=== PATIENT | male | born 1950 | race Caucasian/White ===

== ENCOUNTER 2018-12-29 10:35 | Inpatient (IN) | payer MEDICARE, MEDICAID ==
[~2018-12-29] VITALS: Ht 177.8 cm; Wt 89.8 kg
--- NOTE | 2018-12-29 10:50 | NUR ---
BLOOD DRAWNED AND SENT TO LAB. URINE SPECIMEN COLLECTED.
[2018-12-29 10:56] LABS: APPEARANCE,URINE Slightly Cloudy (CLEAR); BILIRUBIN,URINE SMALL (NEGATIVE); BLOOD, URINE Trace-lysed Ery/uL (NEGATIVE); KETONES,URINE 15 (NEGATIVE); LEUKOCYTE ESTERASE ,URINE Negative (NEGATIVE); NITRITE, URINE Positive (NEGATIVE); PH,URINE 5.5 (5.0-8.0); PROTEIN,URINE 100 mg/dl (NEGATIVE); UGLUCOSE Negative (NEGATIVE)
[2018-12-29 10:57] LABS: COLOR,URINE Dark Yellow (YELLOW)
[2018-12-29 11:00] LABS: BASOPHILS # (AUTO) 0.1 /CMM (0.0-0.2); BASOPHILS % (AUTO) 0.5 % (0.0-2.0); EOSINOPHILS % (AUTO) 0.1 % (0.0-6.0); HEMATOCRIT 41 % (39-51); HEMOGLOBIN 13.8 g/dL (13.5-17.5); LYMPHOCYTES % (AUTO) 3.6 % (20.0-44.0); MEAN CORPUSCULAR HGB CONC 34 g/dl (31.0-36.0); MEAN CORPUSCULAR VOLUME 98 fL (80-96); MONOCYTES # (AUTO) 1.3 /CMM (0.1-1.30); MONOCYTES % (AUTO) 4.9 % (2.0-12.0); NEUTROPHILS # (AUTO) 24.4 /CMM (1.8-8.9); NEUTROPHILS % (AUTO) 90.9 % (43.0-81.0); PLATELET COUNT (AUTO) 378 /CMM (150-450); RED BLOOD CELL COUNT(AUTO) 4.15 MIL/uL (4.5-6.0); WHITE BLOOD COUNT (AUTO) 26.9 K/uL (4.3-11.0)
[2018-12-29 11:02] LABS: CALCIUM, SERUM 8.7 mg/dL (8.5-10.1); CARBON DIOXIDE 25 mmol/L (21-32); CHLORIDE 88 mmol/L (98-107); CREATININE 1.3 mg/dL (0.6-1.3); GLUCOSE 247 mg/dL (74-106); POTASSIUM 3.7 mmol/L (3.5-5.1); SODIUM SERUM 127 mmol/L (136-145); UREA NITROGEN, BLOOD 20 mg/dL (7-18)
[2018-12-29 11:07] LABS: BACTERIA,URINE Few /HPF (None Seen); SQUAMOUS EPITHELIAL CELL,UR Few /HPF (None Seen); WBC,URINE 0-3 /HPF (0-3)
[2018-12-29 11:08] LABS: ACETAMINOPHEN 0 ug/ml (10-30); ALANINE AMINOTRANSFERASE 20 U/L (12-78); ALBUMIN 2.5 g/dL (3.4-5.0); ALCOHOL, BLOOD < 3 mg/dL (0-0); ALKALINE PHOSPHATASE 108 U/L (46-116); ASPARTATE AMINOTRANSFERASE 20 U/L (15-37); BILIRUBIN,DIRECT 0.4 mg/dL (0.0-0.2); TOTAL PROTEIN, SERUM 7.6 g/dL (6.4-8.2)
[2018-12-29] MEDS ORDERED: CEFTRIAXONE 1GM BAG (ER ONLY) 50 ML IV ONE (11:30)
[2018-12-29] MEDS: IV NS 0.9% 1,000 ML BAG IV ONE ×2 (11:30→11:46)
[2018-12-29] MEDS ORDERED: CEFTRIAXONE 1 G VIAL ONE (11:39)
[2018-12-29] MEDS ORDERED: GLIP10TA11 PO (11:41)
[2018-12-29] MEDS ORDERED: BENA10TA9 PO (11:41)
[2018-12-29] MEDS ORDERED: METF-442 PO (11:41)
[2018-12-29] MEDS ORDERED: ASPI-605 PO (11:41)
[2018-12-29] MEDS ORDERED: SIMV40TA5 PO (11:41)
[2018-12-29] MEDS ORDERED: CHLO25TA2 PO (11:41)
--- NOTE | 2018-12-29 11:44 | NUR ---
RL PAGEZakia, MANUFACTURING PLANT TECHNICIAN.
[2018-12-29] MEDS ORDERED: VANCOMYCIN 1 GM in IV D5W 250 ML IV ONE (12:00)
--- NOTE | 2018-12-29 12:23 | NUR ---
CALLED NURSING SUP. FOR ISRAEL BED
--- NOTE | 2018-12-29 12:38 | NUR ---
ISRAEL 112-2
[2018-12-29] MEDS ORDERED: ONDANSETRON HCL/PF 4 MG/2 ML VIAL IVP PRN (13:00)
[2018-12-29] MEDS ORDERED: CLINDAMYCIN IV RTU IN D5W 900 MG/50 ML PIGGYBACK IV SCH (13:00)
[2018-12-29] MEDS ORDERED: ACETAMINOPHEN 325 MG TABLET PO PRN (13:00)
[2018-12-29] MEDS ORDERED: Z GUARD REMEDY 2 OZ OINT TP PRN (13:00)
[2018-12-29] MEDS ORDERED: HYDROCODONE/APAP 5/325MG 1 EACH TABLET PO PRN (13:00)
[2018-12-29] MEDS ORDERED: MAG HYDROX/AL HYDROX/SIMETH 30 ML UDC PO PRN (13:00)
[2018-12-29] MEDS ORDERED: MAGNESIUM HYDROXIDE 30 ML UDC PO PRN (13:00)
[2018-12-29] MEDS ORDERED: IV NS 0.9% 1,000 ML BAG IV ONE (13:00)
[2018-12-29] MEDS ORDERED: ZOLPIDEM TARTRATE 5 MG TABLET PO PRN (13:00)
--- NOTE | 2018-12-29 13:45 | NUR ---
GAS CHECK PAD MAKERINCINERATOR PLANT GENERAL SUPERVISOR NOTES RECEIVED PT FROM ER TO ROOM 112-1 VIA [employer]DEANNA.ALERT/ORIENTED X3 WITH ANXIOUS BEHAVIOR.ON TELE HR IS [address]ON 2L O2 VIA NC CONTINUOUSLY,NO SOB AND ACUTE DISTRESS NOTED.RIGHT AC IV LINE G 20 IS PRESENT,SITE IS CLEAN,DRY AND INTACT.NO INFILTRATION NOTED.SAFETY IS MAINTAINED AT ALL TIMES.BED IS IN LOW POSITION AND LOCKED,CALL LIGHT IS WITHIN REACH.WILL CONTINUE TO MONITOR THE PT CLOSELY.
[2018-12-29] MEDS ORDERED: CLINDAMYCIN 900 MG in IV NS 0.9% 50 ML IV SCH (14:00)
[2018-12-29] MEDS: CLINDAMYCIN 900 MG in IV D5W 50 ML IV SCH ×2 (14:46→20:00)
--- NOTE | 2018-12-29 15:00 | NUR ---
QUALITY INTERN NOTES OFFERED TO CHECK SKIN ASSESSMENT,PT REFUSED AND HE TUNG HE WANTS TO SLEEP.EXPLAINED THE RISK AND BENEFITS X3,STILL REFUSED.
--- NOTE | 2018-12-29 15:30 | NUR ---
DIE MAKER NOTES OFFERED AGAIN THE SKIN ASSESSMENT,PT SAID"I AM OK TO CHECK SKIN IN LOWER EXTREMITY,NO MORE.PLEASE DONT DISTURB ME,I WANT TO SLEEP".SKIN ASSESSMENT DONE IN LOWER EXTREMITY.
[2018-12-29 16:00] VITALS: BP 101/61
[2018-12-29] MEDS: METFORMIN 500 MG TABLET PO SCH (17:20)
[2018-12-29] MEDS: BENAZEPRIL HCL 10 MG TABLET PO SCH (17:20)
--- NOTE | 2018-12-29 18:28 | NUR ---
HYDROGEN BRAZE FURNACE OPERATOR CLOSING NOTES PT IS LYING ON BED.ALERT/ORIENTED X3.ON 2L O2 VIA NC CONTINUOUSLY,NO SOB AND ACUTE DISTRESS NOTED.SLEEPING ON BED.OFFERED AGAIN THE SKIN ASSESSMENT,STILL REFUSED.IV LINE IS IN PLACE.RESPIRATION IS EVEN AND NONLABORED.NO SIGNIFICANT CHANGES NOTED IN THE SHIFT.ENDORSED TO TEST EVALUATOR RN FOR ADRIAN AND TRY TO OFFER THE SKIN ASSESSMENT LATER.
--- NOTE | 2018-12-29 19:43 | NUR ---
TD RN NOTES RECEIVED PT ON BED. A/O X 3. ON NASAL CANNULA NO RESPIRATORY DISTRESS NOTED. ON TELE MONITOR SR 100. IV ACCESS RAC G20 PATENT AND INTACT. BED ALARM ON. SIDE RAILS UP X3. CALL LIGHT WITHIN REACH. BED IN LOW POSITION. WILL CONTINUE TO MONITOR PT CLOSELY.
[2018-12-29 20:00] VITALS: BP 123/67
[2018-12-29 20:10] VITALS: BP 123/67
--- NOTE | 2018-12-29 20:42 | NUR ---
TD RN NOTES PT REFUSING BED ALARM, PT EDUCATED ABOUT FALL RISK. PT STILL REFUSED BED ALARM. SIDE RAILS UP X3. BED IN LOCKED AND LOWEST POSITION. WILL MONITOR PT CLOSELY.
--- NOTE | 2018-12-29 21:23 | NUR ---
TD RN NOTES PT REFUSED PM MEDS WHEN RN OPENED THE MEDICATION. EXPLAIN BENEFITS. PT STILL REFUSED. WILL MONITOR PT CLOSELY.
[2018-12-29] MEDS ORDERED: SIMVASTATIN 40 MG TABLET PO SCH (22:00)
[2018-12-30] VITALS: BP 114/62
--- NOTE | 2018-12-30 00:35 | NUR ---
TD RN NOTES PT KEEPS REMOVING WOUND CARE DRESSING. PT REFUSED WOUND CARE AT THIS TIME. EXPLAINED RISK AND BENEFITS, PT STILL REFUSED.
[2018-12-30 05:30] VITALS: BP 134/69
[2018-12-30] MEDS: CLINDAMYCIN 900 MG in IV D5W 50 ML IV SCH ×2 (05:48→13:00)
[2018-12-30 06:48] LABS: BASOPHILS # (AUTO) 0.1 /CMM (0.0-0.2); BASOPHILS % (AUTO) 0.4 % (0.0-2.0); EOSINOPHILS % (AUTO) 0.1 % (0.0-6.0); HEMATOCRIT 37 % (39-51); HEMOGLOBIN 12.3 g/dL (13.5-17.5); LYMPHOCYTES # (AUTO) 1.3 /CMM (0.8-4.8); LYMPHOCYTES % (AUTO) 5.8 % (20.0-44.0); MEAN CORPUSCULAR HGB CONC 34 g/dl (31.0-36.0); MEAN CORPUSCULAR VOLUME 97 fL (80-96); MONOCYTES # (AUTO) 2.1 /CMM (0.1-1.30); MONOCYTES % (AUTO) 9.3 % (2.0-12.0); NEUTROPHILS # (AUTO) 19.6 /CMM (1.8-8.9); NEUTROPHILS % (AUTO) 84.4 % (43.0-81.0); PLATELET COUNT (AUTO) 349 /CMM (150-450); RED BLOOD CELL COUNT(AUTO) 3.78 MIL/uL (4.5-6.0); WHITE BLOOD COUNT (AUTO) 23.2 K/uL (4.3-11.0)
--- NOTE | 2018-12-30 06:53 | NUR ---
TD RN NOTES NO ACUTE CHANGES NOTED DURING THE SHIFT. PROVIDED COMFORT AND SAFETY. NO RESPIRATORY DISTRESS NOTED. WILL ENDORSE TO THE AM NURSE FOR CONTINUITY OF CARE.
[2018-12-30 07:05] LABS: CALCIUM, SERUM 8.6 mg/dL (8.5-10.1); CREATININE 0.7 mg/dL (0.6-1.3); MAGNESIUM 1.5 mg/dL (1.8-2.4); PHOSPHORUS 2.6 mg/dL (2.5-4.9); POTASSIUM 3.2 mmol/L (3.5-5.1)
[2018-12-30 08:00] VITALS: BP 106/57
--- NOTE | 2018-12-30 08:14 | NUR ---
WOUND CARE CONSULT: PT PRESENTS WITH SWELLING AND REDNESS TO LEFT LOWER LEG AND FOOT WELL FOUL PURULENT PLANTAR ULCER AND DISCOLORED TOES WITH SWELLING, PRESENT ON ADMISSION. RECOMMEND DPM CONSULT. DR MONTAÑO NOTIFIED OF CONSULT REQUEST. WILL SEE PRN. FUNK IN AGREEMENT WITH PLAN OF CARE. PT ON BERE ISOFLEX LOW AIRLOSS BED. PT INDEPENDENT WITH BED MOBILITY AND CONTINENT AT THIS TIME. Addendum: 12/30/18 at 0816 by TU JULIAN WNDNU Amended: Links added.
[2018-12-30 09:00] VITALS: BP 106/57
[2018-12-30] MEDS ORDERED: glipiZIDE 10 MG TABLET PO SCH (09:00)
[2018-12-30] MEDS ORDERED: ASPIRIN EC 81 MG TABLET.DR PO SCH (09:00)
[2018-12-30] MEDS: BENAZEPRIL HCL 10 MG TABLET PO SCH (09:00)
[2018-12-30] MEDS ORDERED: Chlorthalidone 25 MG PO SCH (09:00)
[2018-12-30] MEDS: METFORMIN 500 MG TABLET PO SCH (09:15)
[2018-12-30] MEDS: Magnesium 1GM/D5W 100ML PREMIX 100 ML IV SCH ×2 (10:00→11:00)
--- NOTE | 2018-12-30 10:22 | NUR ---
Social service consult requested by ISRAEL TRACIE Olivia for possible homelessness. Pt. is a 68 year old male who was admitted to [facility] for sepsis. SEGUNDO was informed by TRACIE Olivia that pt. wanted to leave the hospital. SEGUNDO and TRACIE Olivia met with pt. bedside. Pt. was cooperative with SW during the assessment. Pt. states he resides at [facility] located at [address] [place] [address], [address] in [facility]. Pt. states he receives 60 hrs per month of IHSS. Pt. has a caregiver three times per week. Pt. is declining SNF placement. Pt. receives SSI monthly but did not want to disclose how much he was getting. Pt. is wanting to leave right away stating, " I have to take care of some important personal business." Pt. would not disclose what it is. SW convinced pt. to stay until the doctor comes by to see him rather than leaving AMA. Pt. agreed.
[2018-12-30] MEDS: POTASSIUM CHLORIDE 20 MEQ TAB.PRT.SR PO SCH ×2 (10:30→11:30)
--- NOTE | 2018-12-30 11:43 | NUR ---
RN NOTE PT INSISTED ON LEAVING THE HOSPITAL AMA DUE TO URGENT MATTER HE NEEDS TO TAKE CARE OF, HE SAID HE WILL COME BACK TOMORROW AFTERNOON, REFUSED FULL SKIN ASSESSMENT, REFUSED IV MEDS PRIOR TO GOING HOME, DR LORA NOTIFIED AND HE SAID OKAY TO LET HIM SIGN AMA PAPER AND GO. PT AOX3, RISKS OF LEAVING AMA EXPLAINED, BUT STILL REFUSED TO STAY. PT ENCOURAGED TO COME BACK TO HOSPITAL DUE TO HIS ULCER AND CELLULITIS. PT VERBALIZED UNDERSTANDING. PT SIGNED AMA PAPER. PT WILL CALL CAB/CAREGIVER FOR HIMSELF. BELONGINGS LIST SIGNED AND BELONGINGS PROVIDED TO PT. Addendum: 12/30/18 at 1407 by TOMA RAMIREZ RN iv site removed, id band removed.
[2018-12-30] MEDS ORDERED: PIPERACILLIN /TAZOBACTAM 3.375 G in IV D5W 50 ML IV ONE (12:00)
--- NOTE | 2018-12-30 12:11 | NUR ---
SEGUNDO received a call from TRACIE Olivia stating that pt. is wanting to leave AMA but pt. is not able to walk. SEGUNDO contacted stock broker supervisor Mary Beth Andrade and consulted with her regarding pt's condition. SEGUNDO call Coleman in intake to request crisis evaluation for the pt.
--- NOTE | 2018-12-30 12:26 | NUR ---
DR. LORA NOTIFIED REGARDING PATIENT AMBULATION STATUS AND PT. SIGNED AMA,PT. IS ALERT NO SUICIDAL IDEATION,BUT UNABLE TO WALK R/T SWOLLEN LEG.EXPLAINED THE LIVING SITUATION ALSO OF PT. PER MD HE WILL SEE PT. AROUND NOON,MADE AWARE ALSO THAT OR RN RECOMMEND CRISIS TEAM TO SEE PT.
--- NOTE | 2018-12-30 12:29 | NUR ---
PATIENT AGITATED AND DEMANDED TO SMOKE,PT. SIGNED WAIVER FORM FOR SMOKING AND ACCOMPANIED TO SMOKING AREA AND AGREED TO WAIT FOR DR. LORA.
--- NOTE | 2018-12-30 12:31 | NUR ---
EXPLAINED THE RISK OF LEAVING AMA W/ UNSTEADY GAIT THAT HE WILL INJUR HIMSELF SECONDARY TO FALL AND MIGHT HIT HIS HEAD AND CAUSE ,ALSO EXPLAINED THE RISK OF INFECTION FOR LEAVING WITH HIS FOOT UNTREATED FOR INFECTION.PATIENT VERBALIZED HE STILL WANTS TO LEAVE AND WHEN ASKED IF HE CAN CALL SOMEBODY TO PICK HIM UP PT. GET UPSET.PT. .AGREED TO WAIT FOR DR. LORA.GIORGI FENTONW UPDATED WITH PT. SITUATION.
--- NOTE | 2018-12-30 13:05 | NUR ---
SEGUNDO met with pt. who appears to have full mental capacity in making decisions for himself. Pt. is is not suicidal or homicidal. Pt. continues to state he needs to take care of a personal matter and will come back to the ED tomorrow. Pt. is adamant about leaving the hospital against medical advice. Pt's doctor is aware. SEGUNDO contacted wood gang sawyer Suleman Borden and informed him that pt. does not need a crisis evaluation at this time since pt. has full mental capacity in making decisions and is choosing to leave AMA. Pt. stated he has someone to receive and assist him at home.
--- NOTE | 2018-12-30 13:14 | NUR ---
DR. LORA AT BEDSIDE TALKING TO PATIENT AND EXPLAINING RISKS OF LEAVING AMA INCLUDING ,PT. STILL INSISTED TO LEAVE AMA AND VERBALIZED HE WILL CALL CAB AND SOMEBODY WILL HELP HIM IN LONG-TERM WHERE HE LIVES,PER MD OK TO,LEAVE AMA AND PATIENT DOES NOT NEED CRISIS TEAM EVAL.PATIENT DISCHARGE AMA VIA TAXI CAB.ARTS AND CRAFTS TEACHER GIORGI UPDATED.
--- NOTE | 2018-12-30 13:15 | NUR ---
rn note pt had lunch spoke with md, pt left ama. helped to taxi cab.
[2018-12-30] MEDS ORDERED: PIPERACILLIN /TAZOBACTAM 3.375 G in IV D5W 100 ML IV SCH (18:00)
[2018-12-31] MEDS ORDERED: DAKINS QUARTER STRENGTH (0.125%) 480 ML BOTTLE TOP SCH (09:00)
[2018-12-31] MEDS ORDERED: CADEXOMER IODINE 40 GM TUBE TP SCH (09:00)
== END 2018-12-30 14:05 | disposition left against medical advice (07) | DRG 871 ==
LOC: ER 10:35 → TELE-TD 12:41 → MEDSG1 12-30 10:26
PROVIDERS: ADMIT Family Medicine; ATTEND Internal Medicine
DX: A41.9 Sepsis, unspecified organism (principal); N17.0 Acute kidney failure with tubular necrosis; L03.116 Cellulitis of left lower limb; E44.0 Moderate protein-calorie malnutrition; E87.1 Hypo-osmolality and hyponatremia; E87.2 Acidosis; L02.612 Cutaneous abscess of left foot; M86.8X7 Other osteomyelitis, ankle and foot; E11.65 Type 2 diabetes mellitus with hyperglycemia; E78.5 Hyperlipidemia, unspecified; L97.529 Non-pressure chronic ulcer of other part of left foot with unspecified severity; E11.621 Type 2 diabetes mellitus with foot ulcer; E86.1 Hypovolemia; I10 Essential (primary) hypertension; F17.210 Nicotine dependence, cigarettes, uncomplicated; E11.42 Type 2 diabetes mellitus with diabetic polyneuropathy; Z79.82 Long term (current) use of aspirin; Z79.84 Long term (current) use of oral hypoglycemic drugs; E11.69 Type 2 diabetes mellitus with other specified complication; Z68.28 Body mass index [BMI] 28.0-28.9, adult
CPT/HCPCS: 36415; 71045-TC; 80048-TC; 80061-TC; 80076-TC; 80305; 81000-TC; 83605-TC; 83735-TC; 84100-TC; 85025-TC; 87040-TC; 87081-TC; 87086-TC; A4216; A6253; A6403; G0378; G0480; J0696; J2543; J3475; J3490; J7030; J7040; J7050; J7060

== ENCOUNTER 2018-12-31 09:01 | Inpatient (IN) | payer MEDICARE, MEDICAID ==
[~2018-12-31] VITALS: Ht 177.8 cm; Wt 92.1 kg
[~2018-12-31 09:01] MED LIST: ASPI-605 PO; BENA10TA11 PO; CHLO25TA2 PO; GLIP10TA11 PO; METF-442 PO; SIMV40TA5 PO
--- NOTE | 2018-12-31 09:38 | NUR ---
PT BROUGHT BY BIB RA 878 FOR EVAL/TX OF LEFT FOOT CELLULITIS,ADMITTED 2 DAYS AGO FOR SAME
[2018-12-31 09:52] LABS: BASOPHILS % (AUTO) 0.2 % (0.0-2.0); EOSINOPHILS % (AUTO) 0.2 % (0.0-6.0); HEMATOCRIT 41 % (39-51); HEMOGLOBIN 13.9 g/dL (13.5-17.5); LYMPHOCYTES # (AUTO) 1.2 /CMM (0.8-4.8); LYMPHOCYTES % (AUTO) 6.1 % (20.0-44.0); MEAN CORPUSCULAR HGB CONC 34 g/dl (31.0-36.0); MEAN CORPUSCULAR VOLUME 97 fL (80-96); MONOCYTES # (AUTO) 1.4 /CMM (0.1-1.30); MONOCYTES % (AUTO) 6.8 % (2.0-12.0); NEUTROPHILS # (AUTO) 17.4 /CMM (1.8-8.9); NEUTROPHILS % (AUTO) 86.7 % (43.0-81.0); PLATELET COUNT (AUTO) 395 /CMM (150-450); RED BLOOD CELL COUNT(AUTO) 4.17 MIL/uL (4.5-6.0)
[2018-12-31] MEDS ORDERED: VANCOMYCIN 1 GM in IV D5W 250 ML IV ONE (10:00)
[2018-12-31] MEDS ORDERED: PIPERACILLIN /TAZOBACTAM 3.375 G in IV D5W 50 ML IV ONE (10:00)
[2018-12-31 10:02] LABS: CALCIUM, SERUM 8.9 mg/dL (8.5-10.1); CREATININE 0.8 mg/dL (0.6-1.3); POTASSIUM 3.5 mmol/L (3.5-5.1)
[2018-12-31 10:08] LABS: ALBUMIN 2.2 g/dL (3.4-5.0); BILIRUBIN,DIRECT 0.3 mg/dL (0.0-0.2); BILIRUBIN,TOTAL 0.9 mg/dL (0.2-1.0); TOTAL PROTEIN, SERUM 7.3 g/dL (6.4-8.2)
--- NOTE | 2018-12-31 10:58 | NUR ---
RN REPORT GIVEN TO CLARKE SARAVIA ADMITTED TO ROOM 204-1 UNDER NEFTALY.
--- NOTE | 2018-12-31 11:03 | NUR ---
PANEL ON-CALL PAGED
--- NOTE | 2018-12-31 11:04 | NUR ---
DR SAMUELS/ON-CALL PAGED
--- NOTE | 2018-12-31 11:30 | NUR ---
RECEIVED PATIENT FROM ER IN STABLE CONDITION. A/OX3, ABLE TO MAKE NEEDS KNOWN. WALKED FROM GURNEY(OUTSIDE THE ROOM) TO BED VIA WALKER WITH ASSISTANCE. NOT IN ANY FORM OF DISTRESS, NO SOB. PATIENT HAS DIABETIC WOUND ON LLE. PAIN IS TOLERABLE PER PATIENT, OFFERED PAIN MEDS AND WILL ADMINISTER PAIN MEDS ORDERED. SKIN ASSESSMENT DONE, PHOTOS TAKEN. ALL BELONGINGS CHECK AND NOTED ON CHECKLIST. PATIENT HAS LOWER DENTURES ONLY. IV ACCESS ON LEFT AC, INTACT AND PATENT. KEPT PATIENT SAFE AND COMFORTABLE. BED IN LOW/LOCKED POSIITON, SIDERAILS UPX2, CALL LIGHT IN REACH. WILL CONTINUE TO MONIOTR ACCORDINGLY.
[2018-12-31 12:00] VITALS: BP 111/71
--- NOTE | 2018-12-31 12:15 | NUR ---
RN NOTES DR RITTER ON BEDSIDE TALKING TO PATIENT. MD WILL DO I&D OF LEFT WOUND TODAY.
[2018-12-31] MEDS ORDERED: ACETAMINOPHEN 325 MG TABLET PO PRN (12:30)
[2018-12-31] MEDS: SIMVASTATIN 40 MG TABLET PO SCH ×2 (12:30→21:24)
[2018-12-31] MEDS ORDERED: HYDROCODONE/APAP 5/325MG 1 EACH TABLET PO PRN (12:30)
[2018-12-31] MEDS ORDERED: ONDANSETRON HCL/PF 4 MG/2 ML VIAL IVP PRN (12:30)
[2018-12-31] MEDS ORDERED: Z GUARD REMEDY 2 OZ OINT TP PRN (12:30)
[2018-12-31] MEDS: BENAZEPRIL HCL 10 MG TABLET PO SCH ×2 (12:30→17:00)
[2018-12-31] MEDS ORDERED: MAGNESIUM HYDROXIDE 30 ML UDC PO PRN (12:30)
[2018-12-31] MEDS ORDERED: MAG HYDROX/AL HYDROX/SIMETH 30 ML UDC PO PRN (12:30)
--- NOTE | 2018-12-31 12:30 | NUR ---
RN NOTES PICKED UP BY OR NURSES FOR I%D. CONSENT WAS SIGNED BY PATIENT AND CHECKLIST DONE.
[2018-12-31] MEDS ORDERED: FEE PK DOSING 1 MIN EA MC ONE ×3 (12:35→12:49)
[2018-12-31] MEDS ORDERED: LIDOCAINE HCL/PF 1% 30 ML SDV ONE (12:43)
[2018-12-31] MEDS ORDERED: FAMOTIDINE/PF INJ 20 MG/2 ML VIAL IV ONE (12:52)
[2018-12-31] MEDS ORDERED: BACITRACIN 50000 UNITS/VIAL ONE (12:56)
--- NOTE | 2018-12-31 13:59 | NUR ---
CAME BACK FROM OR. PATIENT IN STABLE CONDITION. RESUME PRE-OP ORDERED PER MD.
[2018-12-31] MEDS: ASPIRIN EC 81 MG TABLET.DR PO SCH (14:11)
[2018-12-31] MEDS: glipiZIDE 10 MG TABLET PO SCH (14:12)
[2018-12-31] MEDS: IV NS 0.9% 1,000 ML IV PRN (14:22)
--- NOTE | 2018-12-31 14:47 | NUR ---
RN NOTES ZOCOR NON-ADMIN. PATIENT TAKES IT AT NIGHT. NOTIFIED PHARMACYALAN.
--- NOTE | 2018-12-31 15:55 | NUR ---
PATIENT REFUSED MRI AT THE MOMENT, PATIENT YELLED "DAMN, CAN I SLEEP FIRST!". AGREED TO DO IT LATER.
[2018-12-31 16:00] VITALS: BP_SYST 104; BP_SYST 120; BP_DIAS 61; BP_DIAS 73
[2018-12-31] MEDS: METFORMIN 500 MG TABLET PO SCH (17:45)
[2018-12-31] MEDS: PIPERACILLIN /TAZOBACTAM 4.5 G in IV D5W 50 ML IV SCH ×2 (17:46→23:25)
[2018-12-31] MEDS: GLUCERNA SHAKE 237 ML CAN PO SCH (18:08)
--- NOTE | 2018-12-31 19:09 | NUR ---
RN CLOSING NOTES PATIENT IN STABLE CONDITION. ALL NEEDS ATTENDED AND PROVIDED. ALL DUE MEDICATIONS ADMINISTERED, ORDERED. KEPT SAFE AND COMFORTABLE. BED IN LOW/LOCKED POSITION, SIDERAILS UPX2, CALL LIGHT IN REACH. ENDORSED TO NIGHT RN FOR ADRIAN.
--- NOTE | 2018-12-31 19:30 | NUR ---
RECEIVED PATIENT IN BED AWAKE. AO X 3, ABLE TO MAKE NEEDS KNOWN. NO ACUTE DISTRESS NOTED. DENIES ANY PAIN AT THIS TIME. IV SITE PATENT, INTACT; IVF INFUSING ORDERED. LEFT FOOT DRESSING INTACT. SAFETY REMINDERS GIVEN. ON LOW BED WITH BILATERAL UPPER SIDE RAILS UP. CALL ZURITA WITHIN EASY REACH. WILL CONTINUE TO MONITOR.
[2018-12-31 20:00] VITALS: BP 98/50
[2018-12-31] MEDS: VANCOMYCIN 1 GM in IV D5W 250 ML IV SCH (21:24)
[2018-12-31] MEDS: ZOLPIDEM TARTRATE 5 MG TABLET PO PRN (21:36)
--- NOTE | 2019-01-01 02:00 | NUR ---
PATIENT REFUSED TO HAVE IVF CONTINUING TO INFUSE. EDUCATION GIVEN. PATIENT STILL STRONGLY REFUSED TO HAVE IVF INFUSE; STATING HE WANTS TO SLEEP. NURSE OFFERED TO CHANGED IV SITE. PATIENT REFUSED. IVF TAKEN OFF FOR NOW.
[2019-01-01] MEDS: PIPERACILLIN /TAZOBACTAM 4.5 G in IV D5W 50 ML IV SCH ×4 (05:51→23:42)
--- NOTE | 2019-01-01 06:00 | NUR ---
PATIENT ASLEEP, EASILY AROUSABLE. RESPIRATIONS EVEN. NO SIGNS OF PAIN NOTED. DUE MEDS GIVEN WITH NO ASE NOTED. NEEDS ATTENDED. SAFETY PRECAUTIONS AND COMFORT MEASURES IN PLACE. WILL GIVE REPORT TO DAY SHIFT FOR CONTINUITY OF CARE.
--- NOTE | 2019-01-01 07:15 | NUR ---
RN OPENING NOTES RECEIVED PATIENT IN BED AWAKE. A/O X 3, ABLE TO MAKE NEEDS KNOWN. NO ACUTE DISTRESS NOTED. DENIES ANY PAIN AT THIS TIME. IV ACCESS PATENT, INTACT; LEFT FOOT DRESSING C/D/I. SAFETY REMINDERS GIVEN. ON LOCKED/LOW BED WITH BILATERAL UPPER SIDE RAILS UP. CALL ZURITA WITHIN EASY REACH. WILL CONTINUE TO MONITOR.
[2019-01-01 07:20] LABS: BASOPHILS # (AUTO) 0.1 /CMM (0.0-0.2); BASOPHILS % (AUTO) 0.6 % (0.0-2.0); EOSINOPHILS % (AUTO) 0.4 % (0.0-6.0); HEMATOCRIT 38 % (39-51); HEMOGLOBIN 12.8 g/dL (13.5-17.5); LYMPHOCYTES # (AUTO) 1.5 /CMM (0.8-4.8); MEAN CORPUSCULAR HGB CONC 34 g/dl (31.0-36.0); MEAN CORPUSCULAR VOLUME 97 fL (80-96); MONOCYTES # (AUTO) 1.7 /CMM (0.1-1.30); MONOCYTES % (AUTO) 11.4 % (2.0-12.0); NEUTROPHILS # (AUTO) 11.7 /CMM (1.8-8.9); NEUTROPHILS % (AUTO) 77.6 % (43.0-81.0); PLATELET COUNT (AUTO) 377 /CMM (150-450); WHITE BLOOD COUNT (AUTO) 15.1 K/uL (4.3-11.0)
[2019-01-01 07:57] LABS: ALBUMIN 1.9 g/dL (3.4-5.0); BILIRUBIN,TOTAL 0.5 mg/dL (0.2-1.0); CALCIUM, SERUM 8.7 mg/dL (8.5-10.1); CREATININE 0.7 mg/dL (0.6-1.3); MAGNESIUM 1.4 mg/dL (1.8-2.4); PHOSPHORUS 3.7 mg/dL (2.5-4.9); POTASSIUM 3.2 mmol/L (3.5-5.1); TOTAL PROTEIN, SERUM 6.5 g/dL (6.4-8.2)
[2019-01-01 08:00] VITALS: BP 124/69
--- NOTE | 2019-01-01 08:04 | NUR ---
WOUND CARE CONSULT WOUND CARE RECEIVED CONSULT FOR L FOOT WOUND. WOUND CARE WILL DEFER CONSULT AND TREATMENT PLANS TO DPM DR MONTAÑO WHO IS CURRENTLY FOLLOWING THIS PATIENT. PATIENT WITH ESTEBAN AT 19, WILL SEE PRN.
[2019-01-01] MEDS: METFORMIN 500 MG TABLET PO SCH ×2 (08:17→17:00)
[2019-01-01] MEDS: ASPIRIN EC 81 MG TABLET.DR PO SCH (08:17)
[2019-01-01] MEDS: SPIRONOLACTONE 25 MG TABLET PO SCH (08:18)
[2019-01-01] MEDS: ZINC SULFATE 220 MG CAPSULE PO SCH (08:18)
[2019-01-01] MEDS: ASCORBIC ACID 500 MG TABLET PO SCH (08:18)
[2019-01-01] MEDS: BENAZEPRIL HCL 10 MG TABLET PO SCH ×2 (08:19→17:00)
[2019-01-01] MEDS: GLUCERNA SHAKE 237 ML CAN PO SCH ×3 (08:21→17:00)
[2019-01-01] MEDS: glipiZIDE 10 MG TABLET PO SCH (08:22)
[2019-01-01] MEDS: POTASSIUM CHLORIDE 20 MEQ TAB.PRT.SR PO SCH ×2 (10:10→12:18)
[2019-01-01] MEDS: VANCOMYCIN 1 GM in IV D5W 250 ML IV SCH ×2 (10:10→21:38)
[2019-01-01] MEDS: MULTIPLE VIT (LYCOPENE/FA/MV,CA,IRON,MIN/LUT)1 TAB PO SCH (10:26)
[2019-01-01] MEDS: Magnesium 1GM/D5W 100ML PREMIX 100 ML IV SCH ×4 (11:45→16:31)
[2019-01-01] MEDS: IV NS 0.9% 1,000 ML IV PRN (15:07)
--- NOTE | 2019-01-01 15:31 | NUR ---
called dr guzman's office to f/u consult. spoke with supervisor fabrication, she will page dr guzman.
--- NOTE | 2019-01-01 15:55 | NUR ---
RN NOTES: ISS PATIENT HAS NO ACCU CHECK/SLIDING SCALE ORDERED. VERIFIED WITH DR BOWEN REGARDING SLIDING SCALE. PER MD, PLACE PATIENT ON AGGRESSIVE SLIDING SCALE. ORDERS VERIFIED READ BACK, NOTED AND WILL CARRY OUT.
[2019-01-01 16:00] VITALS: BP 90/55
[2019-01-01] MEDS ORDERED: DEXTROSE 50%-WATER 50 ML DISP.SYRIN IV PRN (16:00)
--- NOTE | 2019-01-01 17:00 | NUR ---
WOUND CARE RENDERED ORDERED.
[2019-01-01] MEDS: LACTOBACILLUS RHAMNOSUS GG 1 EACH CAP.SPRINK PO SCH (17:20)
--- NOTE | 2019-01-01 17:30 | NUR ---
DR LR AT BEDSIDE TALKING TO PATIENT.
--- NOTE | 2019-01-01 17:45 | NUR ---
RN NOTES: ACCU BS= 36, THIRD TIME TAKEN. PAGED DR BOWEN, AWAITING CALL BACK FROM . ORDERED STAT POC FROM LAB PROTOCOL. Addendum: 01/01/19 at 1813 by CLARKE HANNA PATIENT WAS ASYMPTOMATIC..
[2019-01-01] MEDS: BLOOD SUGAR DIAGNOSTIC 1 EACH STRIP IN SCH ×2 (17:47→21:36)
--- NOTE | 2019-01-01 17:48 | NUR ---
RN NOTES OFFERED D50 BUT PATIENT REFUSED AND STATED HE WANT TO EAT AND DRINK ORANGE JUICE INSTEAD. EXPLAIN THE RISK AND BENEFIT. PATIENT IS ALERT AND ORIENTEDX4. ASYMPTOMATIC.
--- NOTE | 2019-01-01 17:50 | NUR ---
RN NOTES PATIENT IS EATING DINNER. GAVE 200ML ORANGE JUICE.
--- NOTE | 2019-01-01 18:35 | NUR ---
RECHECKED POC GLUCOSE =82. PATIENT STABLE CONDITION. WILL MONIOTR ACCORDINGLY
--- NOTE | 2019-01-01 19:30 | NUR ---
RECEIVED PATIENT IN BED AWAKE. AO X 3, ABLE TO MAKE NEEDS KNOWN. NO ACUTE DISTRESS NOTED. DENIES ANY PAIN AT THIS TIME. IV SITE PATENT, INTACT; FLUSHED. LEFT FOOT DRESSING INTACT. SAFETY REMINDERS GIVEN. ON LOW BED WITH BILATERAL UPPER SIDE RAILS UP. CALL ZURITA WITHIN EASY REACH. WILL CONTINUE TO MONITOR.
--- NOTE | 2019-01-01 19:32 | NUR ---
RN CLOSING NOTES PATIENT IN STABLE CONDITION. ALL NEEDS ATTENDED AND PROVIDED. ALL DUE MEDICATIONS ADMINISTERED ORDERED. KEPT SAFE AND COMFORTABLE. BED IN LOW/LOCKED POSITION, SIDERAILS UPX2, CALL LIGHT IN REACH. ENDORSED TO NIGHT RN FOR ADRIAN.
[2019-01-01 20:00] VITALS: BP 107/59
[2019-01-01] MEDS: SIMVASTATIN 40 MG TABLET PO SCH (21:37)
[2019-01-01] MEDS: ZOLPIDEM TARTRATE 5 MG TABLET PO PRN (21:38)
--- NOTE | 2019-01-01 23:00 | NUR ---
HS BS 45. PATIENT AO X 3, ABLE TO MAKE NEEDS KNOWN. SNACK OF SARAVANAN CRACKERS, JUICE, AND MILK GIVEN. STAT RANDOM BLOOD GLUCOSE 47. DEXTROSE IVP ADMINISTERED PER PROTOCOL. BLOOD SUGAR RECHECKED ONE HOUR AFTER ADMINISTRATION OF DEXTROSE IVP: 121. LAURYN MANAGER FINE NOTIFIED WITH NO NEW ORDERS.
--- NOTE | 2019-01-02 06:00 | NUR ---
PATIENT ASLEEP, EASILY AROUSABLE. RESPIRATIONS EVEN. NO SIGNS OF PAIN NOTED. NO SYMPTOMS OF HYPER/HYPOGLYCEMIA. DUE MEDS GIVEN WITH NO ASE NOTED. IVF INFUSING ORDERED. PATIENT REFUSED TO HAVE IVF INFUSE FOR PART OF THE SHIFT. EDUCATION GIVEN. PATIENT'S RIGHTS RESPECTED. NEEDS ATTENDED. SAFETY PRECAUTIONS AND COMFORT MEASURES IN PLACE. WILL GIVE REPORT TO DAY SHIFT FOR CONTINUITY OF CARE.
[2019-01-02] MEDS: PIPERACILLIN /TAZOBACTAM 4.5 G in IV D5W 50 ML IV SCH ×4 (06:19→23:41)
[2019-01-02] MEDS: BLOOD SUGAR DIAGNOSTIC 1 EACH STRIP IN SCH ×4 (06:39→21:19)
[2019-01-02 07:18] LABS: CALCIUM, SERUM 8.6 mg/dL (8.5-10.1); CREATININE 0.7 mg/dL (0.6-1.3); POTASSIUM 3.3 mmol/L (3.5-5.1)
--- NOTE | 2019-01-02 07:20 | NUR ---
MS/RN OPENING NOTE THE PATIENT ALERT AND ORIENTED X3. IN ROOM AIR AND DENIES SOB. RESPIRATION REGULAR AND UNLABORED. DENIES PAIN. THE PATIENT IS IN NO APPARENT DISTRESS. RFA G 22 PATENT IV FLUID INFUSING PER ORDER. NO S/S INFILTRATION NOTED. BED LOW AND LOCKED. SIDE RAILS UP X3. CALL LIGHT WITHIN REACH. WILL CONTINUE TO MONITOR.
[2019-01-02] MEDS: GLUCERNA SHAKE 237 ML CAN PO SCH ×3 (07:59→17:00)
[2019-01-02 08:00] VITALS: BP_SYST 116; BP_SYST 117; BP_DIAS 64; BP_DIAS 67
[2019-01-02] MEDS: ASPIRIN EC 81 MG TABLET.DR PO SCH (08:00)
[2019-01-02] MEDS: METFORMIN 500 MG TABLET PO SCH ×2 (08:00→17:45)
[2019-01-02] MEDS: glipiZIDE 10 MG TABLET PO SCH (08:00)
[2019-01-02] MEDS: LACTOBACILLUS RHAMNOSUS GG 1 EACH CAP.SPRINK PO SCH ×2 (08:00→17:45)
[2019-01-02] MEDS: ASCORBIC ACID 500 MG TABLET PO SCH (08:00)
[2019-01-02] MEDS: ZINC SULFATE 220 MG CAPSULE PO SCH (08:00)
[2019-01-02] MEDS: MULTIPLE VIT (LYCOPENE/FA/MV,CA,IRON,MIN/LUT)1 TAB PO SCH (08:00)
[2019-01-02] MEDS: BENAZEPRIL HCL 10 MG TABLET PO SCH ×2 (08:01→17:00)
[2019-01-02] MEDS: SPIRONOLACTONE 25 MG TABLET PO SCH (08:01)
[2019-01-02] MEDS ORDERED: POTASSIUM CHLORIDE 20 MEQ TAB.PRT.SR PO SCH (10:30)
[2019-01-02] MEDS: VANCOMYCIN 1.25 GM in IV D5W 500 ML IV SCH (13:21)
--- NOTE | 2019-01-02 13:30 | NUR ---
MS/RN NOTE THE PATIENT`S BLOOD SUGAR AT 1154 WAS 42. THE PATIENT DEFUSED DEXTROSE 50% DESPITE EXPLAINING RISKS AND BENEFITS. THE PATIENT STATED THAT HE IS STARTING TO EAT LUNCH AND THE BLOOD SUGAR WILL GO UP. LAST BLOOD SUGAR CHECK AT 1326 WAS 68. THE PATIENT STILL REFUSED DEXTROSE 50% INSTEAD THE PATIENT STARTED TO DRINK ORANGE JUICE. THE PATIENT DOES NOT WANT BLOOD SUGAR CHECK AT THIS TIME. WILL CONTINUE TO MONITOR THE PATIENT CLOSELY.
[2019-01-02 16:00] VITALS: BP 98/58
--- NOTE | 2019-01-02 18:17 | NUR ---
MS/RN CLOSING NOTE THE PATIENT ALERT AND ORIENTED X3. IN ROOM AIR AND SATURATION IS AT 97%. DENIES SOB. DENIES PAIN. RFA G 22 PATENT AND ZOSYN INFUSING PER ORDER AND NO S/S INFILTRATION NOTED. LEFT FOOT DRESSING CHANGE DONE PER ORDER AND THE PATIENT TOLERATED IT WELL. GOOD AND GENTLE SKIN CARE RENDERED. ALL NEEDS ATTENDED. WILL ENDORSE TO BOOKING MANAGER.
--- NOTE | 2019-01-02 19:20 | NUR ---
MS/RN OPENING NOTES PT RECEIVED AWAKE, RESTING COMFORTABLY IN BED. ON ROOM AIR, BREATHING EVEN AND UNLABORED. IN NO ACUTE DISTRESS. DENIES SOB AND PAIN AT THIS TIME. DRESSING TO LEFT FOOT C/D/I. REINFORCED NWB TO LEFT FOOT. NO NEEDS EXPRESSED AT THIS TIME. BED IN LOW/LOCKED POSITION WITH CALL LIGHT IN REACH. BILAT. UPPER SIDE RAILS IN PLACE. WILL CONTINUE TO MONITOR
[2019-01-02 20:00] VITALS: BP 98/55
[2019-01-02 20:36] VITALS: BP 98/55
[2019-01-02] MEDS: SIMVASTATIN 40 MG TABLET PO SCH (21:19)
[2019-01-02] MEDS: *INSULIN REGULAR(HUMULIN R)HUM 100 UNIT/ML VIAL SQ PRN (21:24)
[2019-01-02] MEDS: ZOLPIDEM TARTRATE 5 MG TABLET PO PRN (21:29)
--- NOTE | 2019-01-02 21:39 | NUR ---
MS/RN NOTES BGL 143. HELD INSULIN DESPITE SLIDING SCALE. PT NOTED WITH EPISODES OF HYPOGLYCEMIA. SNACKS WERE GIVEN BEGINNING OF SHIFT. ENCOURAGED PT TO SNACK THROUGHOUT THE NIGHT. VERBALIZED UNDERSTANDING. PRN KITA PROVIDED PER REQUEST
[2019-01-02] MEDS: IV NS 0.9% 1,000 ML IV PRN (23:42)
[2019-01-03] MEDS: VANCOMYCIN 1.25 GM in IV D5W 500 ML IV SCH (00:32)
--- NOTE | 2019-01-03 02:08 | NUR ---
MS/RN NOTES PT ROUNDING DONE. PT SLEEPING, BREATHING EVEN AND UNLABORED. IN NO ACUTE DISTRESS.
[2019-01-03] MEDS: PIPERACILLIN /TAZOBACTAM 4.5 G in IV D5W 50 ML IV SCH ×2 (05:57→11:46)
[2019-01-03] MEDS: BLOOD SUGAR DIAGNOSTIC 1 EACH STRIP IN SCH ×4 (06:33→21:25)
[2019-01-03] MEDS: INSULIN REGULAR, HUMAN 100 UNIT/ML 3 ML VIAL SQ PRN (06:33)
--- NOTE | 2019-01-03 06:50 | NUR ---
MS/RN CLOSING NOTES PT AWAKE, RESTING COMFORTABLY IN BED. REMAINS ON ROOM AIR, BREATHING EVEN AND UNLABORED. DENIES SOB AND PAIN AT THIS TIME. IV TO RFA PATENT AND INTACT. NWB TO LEFT FOOT. WOUND CARE PROVIDED ORDERED. ELEVATED ON PILLOW. NO SIGNIFICANT CHANGES OVERNIGHT. ALL NEEDS MET. BED REMAINS IN LOW/LOCKED POSITION WITH CALL LIGHT IN REACH, BILAT. UPPER SIDE RAILS IN PLACE AND HOB ELEVATED. WILL ENDORSE TO DAY SHIFT RN ADRIAN.
[2019-01-03 07:11] LABS: BASOPHILS # (AUTO) 0.1 /CMM (0.0-0.2); EOSINOPHILS % (AUTO) 2.7 % (0.0-6.0); HEMATOCRIT 38 % (39-51); HEMOGLOBIN 12.8 g/dL (13.5-17.5); LYMPHOCYTES # (AUTO) 1.9 /CMM (0.8-4.8); LYMPHOCYTES % (AUTO) 19.7 % (20.0-44.0); MEAN CORPUSCULAR HGB CONC 34 g/dl (31.0-36.0); MEAN CORPUSCULAR VOLUME 97 fL (80-96); MONOCYTES # (AUTO) 1.3 /CMM (0.1-1.30); MONOCYTES % (AUTO) 13.5 % (2.0-12.0); NEUTROPHILS # (AUTO) 6.1 /CMM (1.8-8.9); NEUTROPHILS % (AUTO) 63.1 % (43.0-81.0); PLATELET COUNT (AUTO) 471 /CMM (150-450); WHITE BLOOD COUNT (AUTO) 9.6 K/uL (4.3-11.0)
[2019-01-03 07:34] LABS: CALCIUM, SERUM 8.4 mg/dL (8.5-10.1); CREATININE 0.7 mg/dL (0.6-1.3); POTASSIUM 4.2 mmol/L (3.5-5.1)
--- NOTE | 2019-01-03 07:46 | NUR ---
RN OPENING NOTES PT AWAKE AND RESTING AT SIDE OF BED. NO COMPLAINTS OF PAIN, SOB OR DISTRESS AT THIS TIME. PT HAS RIGHT FA#22 RUNNING NS@75ML/HR. SAFETY PRECAUTIONS IN PLACE, BED IN LOWEST LOCKED POSITION, X2 SIDE RAILS UP AND CALL LIGHT WITHIN REACH. WILL CONTINUE TO MONITOR.
[2019-01-03] MEDS: GLUCERNA SHAKE 237 ML CAN PO SCH ×3 (07:51→16:15)
[2019-01-03] MEDS: SPIRONOLACTONE 25 MG TABLET PO SCH (08:00)
[2019-01-03] MEDS: BENAZEPRIL HCL 10 MG TABLET PO SCH ×2 (08:01→17:00)
[2019-01-03] MEDS: glipiZIDE 10 MG TABLET PO SCH (08:18)
[2019-01-03] MEDS: ASCORBIC ACID 500 MG TABLET PO SCH (08:18)
[2019-01-03] MEDS: ASPIRIN EC 81 MG TABLET.DR PO SCH (08:18)
[2019-01-03] MEDS: METFORMIN 500 MG TABLET PO SCH ×2 (08:18→16:38)
[2019-01-03] MEDS: LACTOBACILLUS RHAMNOSUS GG 1 EACH CAP.SPRINK PO SCH ×2 (08:18→16:38)
[2019-01-03] MEDS: MULTIPLE VIT (LYCOPENE/FA/MV,CA,IRON,MIN/LUT)1 TAB PO SCH (08:18)
[2019-01-03] MEDS: ZINC SULFATE 220 MG CAPSULE PO SCH (08:18)
[2019-01-03 08:20] VITALS: BP 102/65
[2019-01-03 08:43] LABS: EOSINOPHILS % (MANUAL) 4 % (0-4); LYMPHOCYTES % (MANUAL) 18 % (16-48); MONOCYTES % (MANUAL) 20 % (0-11.0); NEUTROPHILS % (MANUAL) 59 (42-76)
[2019-01-03] MEDS: CEFTRIAXONE 1 G in IV D5W 50 ML IV SCH (13:11)
[2019-01-03 16:00] VITALS: BP 85/53
--- NOTE | 2019-01-03 18:39 | NUR ---
RN OPENING NOTES PT AWAKE AND RESTING AT SIDE OF BED. NO COMPLAINTS OF PAIN, SOB OR DISTRESS DURING SHIFT. PT HAS RIGHT FA#22 RUNNING NS@75ML/HR. SAFETY PRECAUTIONS IN PLACE, BED IN LOWEST LOCKED POSITION, X2 SIDE RAILS UP AND CALL LIGHT WITHIN REACH. ALL NEEDS MET. ALL ORDERS CARRIED OUT. WILL ENDORSE TO BLACK BELT NURSE FOR CONTINUITY OF CARE.
[2019-01-03 20:00] VITALS: BP 111/68
[2019-01-03] MEDS: SIMVASTATIN 40 MG TABLET PO SCH (21:25)
[2019-01-03] MEDS: ZOLPIDEM TARTRATE 5 MG TABLET PO PRN (21:40)
--- NOTE | 2019-01-04 06:30 | NUR ---
MS RN NOTES AWAKE & RESPONSIVE. NOT IN ANY DISTRESS. NO SOB NOTED. DENIES ANY PAIN OR DISCOMFORT AT THIS TIME. WITH IVF INFUSING WELL. MONITORED ACCORDINGLY. CALL LIGHT WITHIN REACH. BED IN LOWEST POSITION. SR UP X 2 FOR SAFETY. WILL ENDORSE TO NEXT SHIFT.
[2019-01-04] MEDS ORDERED: HEPARIN SODIUM, PORCINE 5000 UNITS/1 ML VIAL ONE (06:35)
[2019-01-04] MEDS: BLOOD SUGAR DIAGNOSTIC 1 EACH STRIP IN SCH ×4 (06:36→21:22)
[2019-01-04 07:07] LABS: CALCIUM, SERUM 8.6 mg/dL (8.5-10.1); CREATININE 0.6 mg/dL (0.6-1.3); POTASSIUM 4.3 mmol/L (3.5-5.1)
[2019-01-04 08:00] VITALS: BP 117/74
[2019-01-04] MEDS: GLUCERNA SHAKE 237 ML CAN PO SCH ×2 (08:00→11:46)
[2019-01-04] MEDS: METFORMIN 500 MG TABLET PO SCH ×2 (08:10→16:24)
[2019-01-04] MEDS: SPIRONOLACTONE 25 MG TABLET PO SCH (08:10)
[2019-01-04] MEDS: glipiZIDE 10 MG TABLET PO SCH (08:10)
[2019-01-04] MEDS: LACTOBACILLUS RHAMNOSUS GG 1 EACH CAP.SPRINK PO SCH ×2 (08:10→16:24)
[2019-01-04] MEDS: ZINC SULFATE 220 MG CAPSULE PO SCH (08:11)
[2019-01-04] MEDS: ASPIRIN EC 81 MG TABLET.DR PO SCH (08:11)
[2019-01-04] MEDS: ASCORBIC ACID 500 MG TABLET PO SCH (08:11)
[2019-01-04] MEDS: BENAZEPRIL HCL 10 MG TABLET PO SCH ×2 (08:11→16:25)
[2019-01-04] MEDS: MULTIPLE VIT (LYCOPENE/FA/MV,CA,IRON,MIN/LUT)1 TAB PO SCH (08:11)
[2019-01-04] MEDS: CEFTRIAXONE 1 G in IV D5W 50 ML IV SCH (12:28)
[2019-01-04 16:00] VITALS: BP 148/57
--- NOTE | 2019-01-04 19:51 | NUR ---
RN CLOSING NOTES PT AWAKE AND RESTING AT SIDE OF BED. NO COMPLAINTS OF PAIN, SOB OR DISTRESS DURING SHIFT. PT HAS RIGHT FA#22 RUNNING NS@75ML/HR. SAFETY PRECAUTIONS IN PLACE, BED IN LOWEST LOCKED POSITION, X2 SIDE RAILS UP AND CALL LIGHT WITHIN REACH. ALL NEEDS MET. ALL ORDERS CARRIED OUT. WILL ENDORSE TO SHEARING SHED HAND NURSE FOR CONTINUITY OF CARE.
--- NOTE | 2019-01-04 19:55 | NUR ---
RN INITIAL NOTES: RECEIVED REPORT FROM [facility] ALEXANDER. PT IN BED, AWAKE, A/O X3 ON RA RESPIRATION EVEN AND UNLABORED. PT DENIES ANY PAIN OR DISCOMFORT AT THIS TIME. IV ACCESS PATENT AND FLUSHING WELL, ON HL, REFUSING IVF, EDUCATION PROVIDED TO THE PT. PT FOR PROCEDURE IN AM WITH DR MONTAÑO, ALL CONSENT SIGNED BY PT, MADE PT AWARE OF BEING NPO AFTER MN, PT AGREE. DISCUSSED PLAN OF CARE. SAFETY PRECAUTIONS FOR FALL INITIATED, CALL LIGHT IN REACH, WILL CONTINUE MONITORING PT.
[2019-01-04 20:00] VITALS: BP 99/67
[2019-01-04] MEDS: SIMVASTATIN 40 MG TABLET PO SCH (21:22)
[2019-01-04] MEDS: *INSULIN REGULAR(HUMULIN R)HUM 100 UNIT/ML VIAL SQ PRN (21:22)
--- NOTE | 2019-01-04 21:22 | NUR ---
ACCU CHECK 100: BLOOD SUGAR CHECK AND RESULT IS 100, NO INSULIN COVERAGE GIVEN PER SLIDING SCALE
[2019-01-04] MEDS: ZOLPIDEM TARTRATE 5 MG TABLET PO PRN (21:25)
--- NOTE | 2019-01-04 21:26 | NUR ---
PRN AMBIEN: PT REQUESTED FOR SLEEPING PILL, PRN AMBIEN 5MG PO TAB ADMINISTERED TO THE PT AT THIS TIME. PT REQUESTED FOR 2 ORANGE JUICE, 2 PUDDING, 2 PACKS OF CRACKERS.
[2019-01-04] MEDS: IV NS 0.9% 1,000 ML IV PRN (22:31)
[2019-01-05] VITALS (7 sets, daily range): BP systolic 94–119; BP diastolic 60–75
--- NOTE | 2019-01-05 00:03 | NUR ---
WOUND CARE: WOUND CARE PROVIDED TO PT, REMIND PT ABOUT NPO POST MN FOR PROCEDURE IN AM.
--- NOTE | 2019-01-05 05:30 | NUR ---
RN NOTES: CHILDREN COUNSELOR PROVIDED BED BATH TO THE PT, COMPLETE LINEN CHANGE PROVIDED
[2019-01-05] MEDS: BLOOD SUGAR DIAGNOSTIC 1 EACH STRIP IN SCH ×4 (06:11→21:23)
[2019-01-05] MEDS: INSULIN REGULAR, HUMAN 100 UNIT/ML 3 ML VIAL SQ PRN ×2 (06:11→17:15)
--- NOTE | 2019-01-05 06:12 | NUR ---
ACCU CHECK 143: BLOOD SUGAR 143, NO INSULIN GIVEN PT ON NPO FOR SURGERY TODAY AT 0830AM
[2019-01-05 06:22] LABS: BASOPHILS # (AUTO) 0.1 /CMM (0.0-0.2); BASOPHILS % (AUTO) 0.6 % (0.0-2.0); EOSINOPHILS % (AUTO) 1.8 % (0.0-6.0); HEMATOCRIT 41 % (39-51); HEMOGLOBIN 13.5 g/dL (13.5-17.5); LYMPHOCYTES # (AUTO) 2.3 /CMM (0.8-4.8); LYMPHOCYTES % (AUTO) 20.3 % (20.0-44.0); MEAN CORPUSCULAR HGB CONC 33 g/dl (31.0-36.0); MEAN CORPUSCULAR VOLUME 97 fL (80-96); MONOCYTES % (AUTO) 8.7 % (2.0-12.0); NEUTROPHILS # (AUTO) 7.8 /CMM (1.8-8.9); NEUTROPHILS % (AUTO) 68.6 % (43.0-81.0); PLATELET COUNT (AUTO) 536 /CMM (150-450); RED BLOOD CELL COUNT(AUTO) 4.17 MIL/uL (4.5-6.0); WHITE BLOOD COUNT (AUTO) 11.3 K/uL (4.3-11.0)
[2019-01-05 06:40] LABS: CREATININE 0.6 mg/dL (0.6-1.3); POTASSIUM 4.6 mmol/L (3.5-5.1)
--- NOTE | 2019-01-05 06:50 | NUR ---
RN CLOSING NOTES: PT IN BED, AWAKE, REMAINS ON NPO. FOR PROCEDURE TODAY AT 0830AM, ALL CONSENT SECURED, CHECKLIST COMPLETED, IV ACCESS REMAINS PATENT AND FLUSHING WELL, INFUSING WITH IVF ORDERED. DRESSING ON LEFT FOOT REMAINS IN PLACED, C/D/I.OFFLOADED. VS REMAINS STABLE, NEEDS ATTENDED. SAFETY PRECAUTIONS FOR FALL REMAINS ENGAGED, CALL LIGHT IN REACH, WILL ENDORSE TO DAY RN FOR CONTINUITY OF CARE.
--- NOTE | 2019-01-05 07:20 | NUR ---
MS/RN OPENING NOTE THE PATIENT ALERT AND ORIENTED X3. IN ROOM AIR AND DENIES SOB. RESPIRATION REGULAR AND UNLABORED. DENIES PAIN. RFA G 22 PATENT AND IV FLUID INFUSING PER ORDER. NO S/S INFILTRATION NOTED. DRESSING ON LEFT FOOT INTACT. PATIENT REMAINS NPO FOR SURGERY. BED LOW AND LOCKED. SIDE RAILS UP X3. CALL LIGHT WITHIN REACH. WILL CONTINUE TO MONITOR.
[2019-01-05] MEDS: SPIRONOLACTONE 25 MG TABLET PO SCH (08:31)
[2019-01-05] MEDS: ASPIRIN EC 81 MG TABLET.DR PO SCH (08:31)
[2019-01-05] MEDS: MULTIPLE VIT (LYCOPENE/FA/MV,CA,IRON,MIN/LUT)1 TAB PO SCH (08:31)
[2019-01-05] MEDS ORDERED: LIDOCAINE HCL/PF 1% 30 ML SDV ONE (08:52)
[2019-01-05] MEDS ORDERED: BUPIVACAINE 0.5 % PF 150 MG/30 ML VIAL ONE (08:52)
[2019-01-05] MEDS ORDERED: ALBUTEROL 17GM INHALER ONE (08:52)
[2019-01-05] MEDS ORDERED: BUPIVACAINE MPF 0.5% W/EPI INJ 30 ML VIAL ONE (08:54)
[2019-01-05] MEDS: LACTOBACILLUS RHAMNOSUS GG 1 EACH CAP.SPRINK PO SCH ×2 (08:55→17:17)
[2019-01-05] MEDS: BENAZEPRIL HCL 10 MG TABLET PO SCH ×2 (08:56→17:00)
[2019-01-05] MEDS: ZINC SULFATE 220 MG CAPSULE PO SCH (08:56)
[2019-01-05] MEDS: ASCORBIC ACID 500 MG TABLET PO SCH (08:56)
[2019-01-05] MEDS: glipiZIDE 10 MG TABLET PO SCH (08:56)
[2019-01-05] MEDS: METFORMIN 500 MG TABLET PO SCH ×2 (08:56→17:17)
[2019-01-05] MEDS ORDERED: BACITRACIN 50000 UNITS/VIAL ONE (09:20)
[2019-01-05] MEDS ORDERED: VANCOMYCIN 1 GM VIAL ONE (09:26)
[2019-01-05] MEDS: IV NS 0.9% 1,000 ML IV PRN (10:02)
--- NOTE | 2019-01-05 11:22 | NUR ---
MS/RN NOTE THE PATIENT IS BACK FROM OR AT 1100. THE PATIENT ALERT AND ORIENTED X3. IN ROOM AIR AND DENIES SOB. DENIES PAIN. RESPIRATION REGULAR AND UNLABORED. THE PATIENT DENIES NAUSEA OR VOMITING. LEFT FOOT DRESSING INTACT WITH NO BLEEDING OR DISCHARGE ON THE DRESSING. BED LOW AND LOCKED. SIDE RAILS UP X3. CALL LIGHT WITHIN REACH. WILL CONTINUE TO MONITOR.
--- NOTE | 2019-01-05 12:33 | NUR ---
MS/RN NOTE BLOOD SUGAR 150. REFUSED INSULIN SLIDING SCALE DESPITE EXPLAINING RISKS AND BENEFITS.
[2019-01-05] MEDS: CEFTRIAXONE 1 G in IV D5W 50 ML IV SCH (12:42)
--- NOTE | 2019-01-05 17:15 | NUR ---
MS/RN NOTE BLOOD SUGAR 176. THE PATIENT REFUSED INSULIN SLIDING SCALE.
--- NOTE | 2019-01-05 19:40 | NUR ---
MS RN NOTE: PATIENT RESTING IN BED, NO ACUTE DISTRESS NOTED. BREATHING EVEN AND UNLABORED, NO SOB NOTED. IV TO RFA IN PLACE, INFUSING NS AT 75ML/HR. NO S/S OF HYPER/HYPOGLYCEMIA NOTED. DRESSING TO LEFT FOOT IN PLACE, NO BLEEDING NOTED. BED LOCKED AND IN LOWEST POSITION, CALL LIGHT IN REACH. WILL CONTINUE TO MONITOR.
[2019-01-05] MEDS: SIMVASTATIN 40 MG TABLET PO SCH (21:23)
[2019-01-05] MEDS: ZOLPIDEM TARTRATE 5 MG TABLET PO PRN (21:27)
--- NOTE | 2019-01-05 21:45 | NUR ---
MS RN NOTE: PATIENT BLOOD SUGAR LEVEL 179MG/DL, PATIENT REFUSES INSULIN AND SAID THAT HE DOESN'T TAKE INSULIN. EXPLAINED RISK AND BENEFITS, BUT PATIENT CONTINUE TO REFUSE INSULIN. NO S/S OF HYPERGLYCEMIA NOTED. WILL CONTINUE TO MONITOR. Addendum: 01/05/19 at 0208 by JOSE ELIAS SCHREIBER RN PATIENT REQUEST FOR SLEEPING MEDICATION, AMBIEN 5MG 1 TAB ORAL GIVEN PER MD ORDER.
[2019-01-06] MEDS: IV NS 0.9% 1,000 ML IV PRN ×2 (05:53→21:03)
--- NOTE | 2019-01-06 06:20 | NUR ---
MS RN NOTE: PATIENT RESTING IN BED, NO ACUTE DISTRESS NOTED. BREATHING EVEN AND UNLABORED, NO SOB NOTED. IV TO RFA IN PLACE, INFUSING NS AT 75ML/HR. PATIENT BLOOD SUGAR LEVEL 136MG/DL, PATIENT CONTINUES TO REFUSE INSULIN, EXPLAINED RISK AND BENEFITS, BUT CONTINUES TO REFUSE. NO S/S OF HYPER/HYPOGLYCEMIA NOTED. DRESSING TO LEFT FOOT IN PLACE, NO BLEEDING NOTED. BED LOCKED AND IN LOWEST POSITION, CALL LIGHT IN REACH. WILL ENDORSE TO DAY NURSE TO CONTINUE WITH PLAN OF CARE.
[2019-01-06 06:40] LABS: CALCIUM, SERUM 8.2 mg/dL (8.5-10.1); CREATININE 0.7 mg/dL (0.6-1.3); POTASSIUM 4.5 mmol/L (3.5-5.1)
[2019-01-06] MEDS: BLOOD SUGAR DIAGNOSTIC 1 EACH STRIP IN SCH ×4 (07:16→21:03)
[2019-01-06 08:00] VITALS: BP 123/73
[2019-01-06] MEDS: ASCORBIC ACID 500 MG TABLET PO SCH (08:56)
[2019-01-06] MEDS: SPIRONOLACTONE 25 MG TABLET PO SCH (08:56)
[2019-01-06] MEDS: LACTOBACILLUS RHAMNOSUS GG 1 EACH CAP.SPRINK PO SCH ×2 (08:56→18:12)
[2019-01-06] MEDS: MULTIPLE VIT (LYCOPENE/FA/MV,CA,IRON,MIN/LUT)1 TAB PO SCH (08:56)
[2019-01-06] MEDS: ZINC SULFATE 220 MG CAPSULE PO SCH (08:56)
[2019-01-06] MEDS: METFORMIN 500 MG TABLET PO SCH ×2 (08:57→18:12)
[2019-01-06] MEDS: BENAZEPRIL HCL 10 MG TABLET PO SCH ×2 (08:57→17:00)
[2019-01-06] MEDS: glipiZIDE 10 MG TABLET PO SCH (08:57)
[2019-01-06] MEDS: ASPIRIN EC 81 MG TABLET.DR PO SCH (08:57)
[2019-01-06] MEDS: DAKINS QUARTER STRENGTH (0.125%) 480 ML BOTTLE TOP SCH (08:58)
--- NOTE | 2019-01-06 09:02 | NUR ---
MS/RN NOTE FIRST DRESSING CHANGE DONE BY DR SWEET. THE MD DID NOT WAIT FOR PICTURES TO BE TAKEN. SO WILL ENDORSE UPCOMING NURSE TO TAKE PICTURES DURING NEXT DRESSING CHANGE.
[2019-01-06] MEDS: CEFTRIAXONE 1 G in IV D5W 50 ML IV SCH (13:23)
[2019-01-06 16:00] VITALS: BP 101/56
--- NOTE | 2019-01-06 18:32 | NUR ---
MS/RN CLOSING NOTE THE PATIENT ALERT AND ORIENTED X4. IN ROM AIR AND SATURATION IS AT 97%. DENIES SOB. RESPIRATION REGULAR AND UNLABORED. DENIES PAIN. THE PATIENT IS IN NO APPARENT DISTRESS. LAC G 20 PATENT. PATIENT IS NON-COMPLIANT WITH IV FLUIDS DESPITE EXPLAINING RISKS AND BENEFITS MULTIPLE TIME. LEFT FOOT DRESSING INTACT. PATIENT COMPLIANT WITH NWB STATUS. BED LOW AND LOCKED. SIDE RAILS UP X3. CALL LIGHT WITHIN REACH. WILL ENDORSE TO COMPUTER ASSEMBLER.
--- NOTE | 2019-01-06 19:40 | NUR ---
MS RN NOTE: PATIENT RESTING IN BED, NO ACUTE DISTRESS NOTED. BREATHING EVEN AND UNLABORED, NO SOB NOTED. IV TO RFA IN PLACE, INFUSING NS AT 75ML/HR. NO S/S OF HYPER/HYPOGLYCEMIA NOTED. DRESSING TO LEFT FOOT WITH CAM BOOT IN PLACE, NO BLEEDING NOTED. BED LOCKED AND IN LOWEST POSITION, CALL LIGHT IN REACH. WILL CONTINUE TO MONITOR.
[2019-01-06 20:43] VITALS: BP 98/51
[2019-01-06] MEDS: SIMVASTATIN 40 MG TABLET PO SCH (21:02)
[2019-01-06] MEDS: ZOLPIDEM TARTRATE 5 MG TABLET PO PRN (21:03)
--- NOTE | 2019-01-06 21:15 | NUR ---
MS RN NOTE: PATIENT BLOOD SUGAR LEVEL 88MG/DL, NO INSULIN NEEDED PER SLIDING SCALE, NO S/S OF HYPERGLYCEMIA NOTED. PATIENT REQUEST FOR SLEEPING MEDICATION, AMBIEN 5MG 1 TAB ORAL GIVEN PER MD ORDER. WILL CONTINUE TO MONITOR.
--- NOTE | 2019-01-07 06:55 | NUR ---
MS RN NOTE: PATIENT RESTING IN BED, NO ACUTE DISTRESS NOTED. BREATHING EVEN AND UNLABORED, NO SOB NOTED. IV TO RFA IN PLACE. PATIENT BLOOD SUGAR LEVEL 177MG/DL, PATIENT REFUSE INSULIN, EXPLAINED RISK AND BENEFITS, BUT CONTINUES TO REFUSE. NO S/S OF HYPER/HYPOGLYCEMIA NOTED. DRESSING TO LEFT FOOT WITH CAM BOOT IN PLACE, NO BLEEDING NOTED. BED LOCKED AND IN LOWEST POSITION, CALL LIGHT IN REACH. WILL ENDORSE TO DAY NURSE TO CONTINUE WITH PLAN OF CARE.
[2019-01-07] MEDS: BLOOD SUGAR DIAGNOSTIC 1 EACH STRIP IN SCH ×4 (07:09→22:31)
[2019-01-07 07:24] LABS: CALCIUM, SERUM 8.2 mg/dL (8.5-10.1); CREATININE 0.6 mg/dL (0.6-1.3); POTASSIUM 4.5 mmol/L (3.5-5.1)
[2019-01-07 07:30] LABS: BASOPHILS # (AUTO) 0.1 /CMM (0.0-0.2); BASOPHILS % (AUTO) 0.6 % (0.0-2.0); EOSINOPHILS % (AUTO) 1.6 % (0.0-6.0); HEMATOCRIT 39 % (39-51); HEMOGLOBIN 12.7 g/dL (13.5-17.5); LYMPHOCYTES # (AUTO) 2.7 /CMM (0.8-4.8); LYMPHOCYTES % (AUTO) 26.6 % (20.0-44.0); MEAN CORPUSCULAR HGB CONC 33 g/dl (31.0-36.0); MEAN CORPUSCULAR VOLUME 98 fL (80-96); MONOCYTES # (AUTO) 0.8 /CMM (0.1-1.30); MONOCYTES % (AUTO) 8.2 % (2.0-12.0); NEUTROPHILS # (AUTO) 6.4 /CMM (1.8-8.9); PLATELET COUNT (AUTO) 491 /CMM (150-450); RED BLOOD CELL COUNT(AUTO) 3.98 MIL/uL (4.5-6.0); WHITE BLOOD COUNT (AUTO) 10.1 K/uL (4.3-11.0)
[2019-01-07 08:00] VITALS: BP 154/68
--- NOTE | 2019-01-07 08:00 | NUR ---
RN NOTES RECEIVED PATIENT IN THE ROOM, LYING IN THE BED. PATIENT COUGHING, NO ACUTE RESPIRATORY DISTRESS. ADMINISTERED SCHEDULED MEDICATION, PATIENT HAS A WOUND ON LEFT FOOT, REFUSED PAIN AT THIS TIME. IN ACCESS ON RIGHT FA INTACT, INFUSING NS AT 75 ML/HR. NEEDS ATTENDED AND ANTICIPATED. ENCOURAGED TO KEEP LEFT LEG ELEVATED, CALL LIGHT WITHIN TO TRACH. SAFETY PRECAUTION MAINTAINED ALL THE TIME.
[2019-01-07] MEDS: ZINC SULFATE 220 MG CAPSULE PO SCH (08:45)
[2019-01-07] MEDS: LACTOBACILLUS RHAMNOSUS GG 1 EACH CAP.SPRINK PO SCH ×2 (08:45→17:28)
[2019-01-07] MEDS: MULTIPLE VIT (LYCOPENE/FA/MV,CA,IRON,MIN/LUT)1 TAB PO SCH (08:46)
[2019-01-07] MEDS: ASCORBIC ACID 500 MG TABLET PO SCH (08:46)
[2019-01-07] MEDS: BENAZEPRIL HCL 10 MG TABLET PO SCH ×2 (08:46→17:28)
[2019-01-07] MEDS: ASPIRIN EC 81 MG TABLET.DR PO SCH (08:46)
[2019-01-07] MEDS: METFORMIN 500 MG TABLET PO SCH ×2 (08:46→17:28)
[2019-01-07] MEDS: glipiZIDE 10 MG TABLET PO SCH (08:46)
[2019-01-07] MEDS: SPIRONOLACTONE 25 MG TABLET PO SCH (08:53)
--- NOTE | 2019-01-07 09:30 | NUR ---
RN NOTES PATIENT REFUSED NICOTINE PATCH TO BE ORDERED, AWARE OF.
--- NOTE | 2019-01-07 10:00 | NUR ---
RN NOTES PATIENT ASKING FOR SMOKING OUTSIDE. EXPLAINED SMOKING PROHIBITED WOUND HEALING, BUT PATIENT NOR REDIRECTABLE, GET IRRITABLE, AND WANTED GOT OUT TO SMOKE. MD AWARE OF. PER ASSIST OF PIPE ASSEMBLY WORKER PATIENT WENT OUT TO SMOKE.
--- NOTE | 2019-01-07 12:00 | NUR ---
RN NOTES BS-84 MG/DL NO COVERAGE GIVEN, PATIENT EATING LUNCH, REFUSED PAIN MEDICATION. REFUSED WOUND DRESSING CHANGE AT THIS TIME, CALL LIGHT WITHIN TO REACH. ALSO PATIENT AMBULATE WITH PT. CONTINUED MONITORING.
[2019-01-07] MEDS: CEFTRIAXONE 1 G in IV D5W 50 ML IV SCH (12:09)
--- NOTE | 2019-01-07 13:00 | NUR ---
RN NOTES PATIENT OUT OF UNIT FOR SMOK WITH MICROCOMPUTER SUPPORT SPECIALIST.
--- NOTE | 2019-01-07 15:00 | NUR ---
RN NOTES PATIENT STABLE, GET ORDER FOR PICC LINE, CONSENT FORM SIGNED.
[2019-01-07 16:00] VITALS: BP 74/36
--- NOTE | 2019-01-07 17:00 | NUR ---
RN NOTES BS-74 MG/DL, PICK LINE ON RIGHT UPPER ARM, ADMINISTERED SCHEDULED MEDICATION. V/S STABLE. CALL LIGHT WITHIN TO REACH. SAFETY PRECAUTION MAINTAINED ALL THE TIME.
--- NOTE | 2019-01-07 18:30 | NUR ---
RN NOTES PATIENT STABLE, IN THE BED. NO ACUTE RESPIRATORY DISTRESS, REFUSED PAIN, INFUSING NS AT 75 ML /HR ON RIGHT UPPER ARM PICC LINE INTACT. CALL LIGHT WITHIN TO REACH, SAFETY PRECAUTION MAINTAINED ALL THE TIME. ENDORSED ONCOMING NURSE FOR PLAN OF ACRE.
--- NOTE | 2019-01-07 19:30 | NUR ---
RECEIVED PATIENT IN BED AWAKE, AO X 3, ABLE TO MAKE NEEDS KNOWN. NO ACUTE DISTRESS NOTED. DENIES ANY PAIN AT THIS TIME. IV SITE PATENT, INTACT; IVF INFUSING ORDERED. LEFT FOOT DRESSING INTACT. CAM BOOT ON. SAFETY REMINDERS GIVEN. ON LOW BED WITH BILATERAL UPPER SIDE RAILS UP. CALL ZURITA WITHIN EASY REACH. WILL CONTINUE TO MONITOR.
[2019-01-07 20:00] VITALS: BP 118/58
[2019-01-07] MEDS: SIMVASTATIN 40 MG TABLET PO SCH (22:32)
[2019-01-07] MEDS: ZOLPIDEM TARTRATE 5 MG TABLET PO PRN (22:32)
[2019-01-07] MEDS: DAKINS QUARTER STRENGTH (0.125%) 480 ML BOTTLE TOP SCH (22:37)
[2019-01-08] MEDS: IV NS 0.9% 1,000 ML IV PRN (05:59)
--- NOTE | 2019-01-08 06:00 | NUR ---
PATIENT ASLEEP, EASILY AROUSABLE. RESPIRATIONS EVEN. NO SIGNS OF PAIN NOTED. DUE MEDS GIVEN WITH NO ASE NOTED. IVF INFUSING ORDERED. NEEDS ATTENDED. SAFETY PRECAUTIONS AND COMFORT MEASURES IN PLACE. WILL GIVE REPORT TO DAY SHIFT FOR CONTINUITY OF CARE.
[2019-01-08 06:29] LABS: BASOPHILS # (AUTO) 0.1 /CMM (0.0-0.2); BASOPHILS % (AUTO) 0.6 % (0.0-2.0); EOSINOPHILS % (AUTO) 1.2 % (0.0-6.0); HEMATOCRIT 38 % (39-51); HEMOGLOBIN 12.9 g/dL (13.5-17.5); LYMPHOCYTES # (AUTO) 3.2 /CMM (0.8-4.8); LYMPHOCYTES % (AUTO) 32.2 % (20.0-44.0); MEAN CORPUSCULAR HGB CONC 34 g/dl (31.0-36.0); MEAN CORPUSCULAR VOLUME 97 fL (80-96); MONOCYTES # (AUTO) 0.9 /CMM (0.1-1.30); MONOCYTES % (AUTO) 9.3 % (2.0-12.0); NEUTROPHILS # (AUTO) 5.7 /CMM (1.8-8.9); NEUTROPHILS % (AUTO) 56.7 % (43.0-81.0); PLATELET COUNT (AUTO) 507 /CMM (150-450); RED BLOOD CELL COUNT(AUTO) 3.95 MIL/uL (4.5-6.0)
[2019-01-08] MEDS: BLOOD SUGAR DIAGNOSTIC 1 EACH STRIP IN SCH ×2 (06:41→12:00)
[2019-01-08 07:12] LABS: CALCIUM, SERUM 8.4 mg/dL (8.5-10.1); CREATININE 0.7 mg/dL (0.6-1.3); POTASSIUM 4.6 mmol/L (3.5-5.1)
--- NOTE | 2019-01-08 07:20 | NUR ---
MS RN INITIAL NOTES Report received at bedside. Patient received in bed, awake and verbally responsive. No signs and symptoms of distress. Denies any pain. Safety measure in place. Bed in lowest position with call light within reach. Will continue to monitor and assess patient.
[2019-01-08 08:00] VITALS: BP 111/71
[2019-01-08] MEDS: ASPIRIN EC 81 MG TABLET.DR PO SCH (08:27)
[2019-01-08] MEDS: ZINC SULFATE 220 MG CAPSULE PO SCH (08:27)
[2019-01-08] MEDS: MULTIPLE VIT (LYCOPENE/FA/MV,CA,IRON,MIN/LUT)1 TAB PO SCH (08:27)
[2019-01-08] MEDS: METFORMIN 500 MG TABLET PO SCH (08:27)
[2019-01-08] MEDS: ASCORBIC ACID 500 MG TABLET PO SCH (08:27)
[2019-01-08 08:28] VITALS: BP 111/71
[2019-01-08] MEDS: BENAZEPRIL HCL 10 MG TABLET PO SCH (08:28)
[2019-01-08] MEDS: LACTOBACILLUS RHAMNOSUS GG 1 EACH CAP.SPRINK PO SCH (08:28)
[2019-01-08] MEDS: glipiZIDE 10 MG TABLET PO SCH (08:28)
[2019-01-08] MEDS: SPIRONOLACTONE 25 MG TABLET PO SCH (08:28)
[2019-01-08] MEDS ORDERED: CEFT1VIA15 IV (10:29)
[2019-01-08] MEDS: CEFTRIAXONE 1 G in IV D5W 50 ML IV SCH ×2 (11:33→12:09)
[2019-01-08] MEDS: DAKINS QUARTER STRENGTH (0.125%) 480 ML BOTTLE TOP SCH (12:09)
--- NOTE | 2019-01-08 12:50 | NUR ---
MS SACK REPAIRER NOTES Patient is cleared for discharge by MD with one dose of antibiotic to be given prior to discharge. Discharge papers given, reviewed and signed by patient. Refused to take discharge photos. All due meds given and tolerated including last antibiotic per MD's order. No IV access remained except for PICC line that was placed for senior care antibiotic treatment when discharge. PICC line dressing clean, dry and intact with access patent. Dressing on LLE clean, dry and intact with no bleeding/stain noted. [place] placed on LLE. Patient denies any pain/discomfort. Not in any type of distress. Vitals signs WNL. Afebrile. All needs provided and met. Belongings with patient including clothes and personal walker: belongings form reviewed and signed by patient. Patient refused to take crutches home. Questions and concerns addressed. Assigned porter sample case aware of discharge for antibiotic delivery to home.
--- NOTE | 2019-01-08 12:51 | NUR ---
MS ELECTRICIAN'S ASSISTANT NOTES Transported patient to [facility] via wheelchair. Patient left in transportation in stable condition.
== END 2019-01-08 13:00 | disposition home health service (06) | DRG 853 ==
LOC: ER 09:05 → MEDSG2 11:08
PROVIDERS: ADMIT Internal Medicine; ATTEND Family Medicine
PROC: 0KBW0ZZ Excision of Left Foot Muscle, Open Approach (ICD-10-PCS; principal; 2018-12-31)
PROC: 0KBW0ZZ Excision of Left Foot Muscle, Open Approach (ICD-10-PCS; 2019-01-05)
PROC: 0SQN0ZZ Repair Left Metatarsal-Phalangeal Joint, Open Approach (ICD-10-PCS; 2019-01-05)
PROC: 0Y6N0ZB Detachment at Left Foot, Partial 2nd Ray, Open Approach (ICD-10-PCS; 2019-01-05)
PROC: 0HXNXZZ Transfer Left Foot Skin, External Approach (ICD-10-PCS; 2019-01-05)
PROC: 02HV33Z Insertion of Infusion Device into Superior Vena Cava, Percutaneous Approach (ICD-10-PCS; 2019-01-07)
PROC: B548ZZA Ultrasonography of Superior Vena Cava, Guidance (ICD-10-PCS; 2019-01-07)
DX: A41.9 Sepsis, unspecified organism (principal); N17.0 Acute kidney failure with tubular necrosis; E11.52 Type 2 diabetes mellitus with diabetic peripheral angiopathy with gangrene; N39.0 Urinary tract infection, site not specified; L03.116 Cellulitis of left lower limb; M86.8X7 Other osteomyelitis, ankle and foot; E87.1 Hypo-osmolality and hyponatremia; E87.2 Acidosis; L02.612 Cutaneous abscess of left foot; L97.528 Non-pressure chronic ulcer of other part of left foot with other specified severity; E11.621 Type 2 diabetes mellitus with foot ulcer; E11.69 Type 2 diabetes mellitus with other specified complication; I10 Essential (primary) hypertension; E86.1 Hypovolemia; E78.5 Hyperlipidemia, unspecified; F17.210 Nicotine dependence, cigarettes, uncomplicated; E11.42 Type 2 diabetes mellitus with diabetic polyneuropathy; E66.9 Obesity, unspecified; Z68.29 Body mass index [BMI] 29.0-29.9, adult; E11.649 Type 2 diabetes mellitus with hypoglycemia without coma; Z79.82 Long term (current) use of aspirin; Z79.84 Long term (current) use of oral hypoglycemic drugs
CPT/HCPCS: 36415; 36569; 71045-TC; 73630-TC; 73718-TC; 80048-TC; 80053-TC; 80061-TC; 80076-TC; 80202-TC; 82945-TC; 82947-TC; 82962-TC; 83605-TC; 83735-TC; 84100-TC; 85025-TC; 85610-TC; 85730-TC; 86850-TC; 87040-TC; 87070-TC; 87081-TC; 88305-TC; 88311-TC; 88312-TC; 93926-TC; 97116-TC; 97530-TC; A4217; A6253; A6403; C1751; G0378; J0330; J0690; J0696; J1644; J1815; J2405; J2543; J2704; J2765; J3370; J3475; J3490; J7030; J7060

== ENCOUNTER 2019-06-12 09:39 | Inpatient (IN) | payer MEDICARE, MEDICAID ==
[~2019-06-12] VITALS: Ht 175.3 cm; Wt 96.2 kg
[~2019-06-12 09:39] MED LIST changes: +CEFT1VIA15 IV; +SIMV-49 PO; -SIMV40TA5 PO
--- NOTE | 2019-06-12 09:50 | NUR ---
PT BIB RA 860 FROM HOME, ABSCESS/CELLULITIS, BUTTOCKS. PT AAOX4, BREATHING EVEN AND UNLABORED W/ NAD. SKIN DRY. WOUND ON BILATERAL FOOT NOTED.
[2019-06-12] MEDS ORDERED: VANCOMYCIN 1 GM in IV D5W 250 ML IV ONE (10:00)
[2019-06-12] MEDS ORDERED: PIPERACILLIN /TAZOBACTAM 3.375 G in IV D5W 50 ML IV ONE (10:00)
--- NOTE | 2019-06-12 10:15 | NUR ---
XRAY AT BEDSIDE
--- NOTE | 2019-06-12 10:30 | NUR ---
UNABLE TO ESTABLISH PIV,BILL HAJI CALLED FOR A MIDLINE,DR MCGILL AWARE
[2019-06-12 10:41] LABS: BASOPHILS # (AUTO) 0.1 /CMM (0.0-0.2); BASOPHILS % (AUTO) 0.2 % (0.0-2.0); EOSINOPHILS % (AUTO) 0.1 % (0.0-6.0); HEMATOCRIT 46 % (39-51); HEMOGLOBIN 15.1 g/dL (13.5-17.5); LYMPHOCYTES # (AUTO) 1.9 /CMM (0.8-4.8); LYMPHOCYTES % (AUTO) 4.7 % (20.0-44.0); MEAN CORPUSCULAR HGB CONC 33 g/dl (31.0-36.0); MEAN CORPUSCULAR VOLUME 99 fL (80-96); NEUTROPHILS # (AUTO) 35.6 /CMM (1.8-8.9); PLATELET COUNT (AUTO) 547 /CMM (150-450); RED BLOOD CELL COUNT(AUTO) 4.65 MIL/uL (4.5-6.0)
[2019-06-12 10:42] LABS: WHITE BLOOD COUNT (AUTO) 39.6 K/uL (4.3-11.0)
[2019-06-12 10:45] LABS: CALCIUM, SERUM 8.9 mg/dL (8.5-10.1); CARBON DIOXIDE 23 mmol/L (21-32); CHLORIDE 91 mmol/L (98-107); CREATININE 1.1 mg/dL (0.6-1.3); GLUCOSE 225 mg/dL (74-106); POTASSIUM 4.6 mmol/L (3.5-5.1); SODIUM SERUM 123 mmol/L (136-145); UREA NITROGEN, BLOOD 14 mg/dL (7-18)
--- NOTE | 2019-06-12 10:49 | NUR ---
CALLED NURSING [employer]GRAMMING [employer] FOR SPECIALIST TO PLACE IV ACCESS, WILL TAKE ABOUT 1 HOUR FOR THEM TO ARRIVE. DR. MCGILL NOTIFIED.
[2019-06-12 11:00] LABS: ALANINE AMINOTRANSFERASE 19 U/L (12-78); ALKALINE PHOSPHATASE 154 U/L (46-116); ASPARTATE AMINOTRANSFERASE 26 U/L (15-37); BILIRUBIN,DIRECT 0.4 mg/dL (0.0-0.2); BILIRUBIN,TOTAL 0.9 mg/dL (0.2-1.0); TOTAL PROTEIN, SERUM 7.9 g/dL (6.4-8.2)
[2019-06-12] MEDS ORDERED: IV NS 0.9% 1,000 ML BAG IV ONE (11:00)
--- NOTE | 2019-06-12 11:08 | NUR ---
CALLED FOR TELE BED
--- NOTE | 2019-06-12 11:18 | NUR ---
RECIEVED 327-3
--- NOTE | 2019-06-12 11:35 | NUR ---
[facility] PAGED
[2019-06-12 11:44] LABS: BAND % (MANUAL) 4 % (0.0-5.0); LYMPHOCYTES % (MANUAL) 6 % (16-48); MONOCYTES % (MANUAL) 6 % (0-11.0); NEUTROPHILS % (MANUAL) 84 (42-76)
--- NOTE | 2019-06-12 11:59 | NUR ---
MIDLINE NURSE CAME TO PUT A PICC LINE ON PT RIGHT UPPER BRACHIAL 18G
--- NOTE | 2019-06-12 12:30 | NUR ---
RN NOTES RECEIVED REPORT FROM CATHERINE MATIAS REGARDING THE PATIENT.
--- NOTE | 2019-06-12 12:30 | NUR ---
Gerson bocanegra in EDM - 06/12/19 at 1230 by KIM REPORT GIVEN TO ROBERT CAMPBELL.
--- NOTE | 2019-06-12 12:30 | NUR ---
REPORT GIVEN TO ROBERT ALEXANDER FOR ADRIAN.
--- NOTE | 2019-06-12 12:45 | NUR ---
RN ADMITTING NOTES ADMITTED A 68 YEARS OLD, M TO UNIT VIA GURNEY ACCOMPANIED BY CATHERINE HAJI FROM E.R. A/O X4. ABLE TO MAKE NEEDS KNOWN. PATIENT ORIENTED, TO UNIT, ROOM AND STAFF. ON RA, BREATHING EVEN AND UNLABORED. V/S TAKEN AND RECORDED. REFUSED PHYSICAL/SKIN ASSESSMENT. PATIENT WITH PICC LINE ON GONZALEZ #18. INTACT AND PATENT. IVF TO BE STARTED. SAFETY MEASURES INITIATED, BED PLACED IN LOW LOCKED POSITION WITH SIDE RAILS UP X2. CALL LIGHT PLACED WITHIN REACH. WILL CONTINUE TO MONITOR.
[2019-06-12] MEDS ORDERED: ONDANSETRON HCL/PF 4 MG/2 ML VIAL IVP PRN (13:00)
[2019-06-12] MEDS ORDERED: MAG HYDROX/AL HYDROX/SIMETH 30 ML UDC PO PRN (13:00)
[2019-06-12] MEDS ORDERED: ACETAMINOPHEN 325 MG TABLET PO PRN (13:00)
[2019-06-12] MEDS ORDERED: MORPHINE SULFATE INJ 2 MG/ML DISP.SYRIN IV PRN (13:00)
[2019-06-12] MEDS ORDERED: IV NS 0.9% 1,000 ML IV ONE (13:00)
[2019-06-12] MEDS ORDERED: MAGNESIUM HYDROXIDE 30 ML UDC PO PRN (13:00)
[2019-06-12] MEDS ORDERED: Z GUARD REMEDY 2 OZ OINT TP PRN (13:00)
[2019-06-12] MEDS ORDERED: HYDROCODONE/APAP 5/325MG 1 EACH TABLET PO PRN (13:00)
[2019-06-12] MEDS ORDERED: ZOLPIDEM TARTRATE 5 MG TABLET PO PRN (13:00)
[2019-06-12] MEDS ORDERED: FEE PK DOSING 1 MIN EA MC ONE (13:22)
--- NOTE | 2019-06-12 13:30 | NUR ---
RN NOTES RECEIVED A REPORT OF CRITICAL LAB RESULT: LACTIC ACID OF 2.7. DR. RUSSELL MADE AWARE WITH NO NEW ORDERS AT THIS TIME. PATIENT IN NO SIGNS OF DISTRESS. WILL CONTINUE TO MONITOR.
[2019-06-12 16:00] VITALS: BP 121/55
[2019-06-12] MEDS: ZOSYN IVPB 3.375 G in IV D5W 50ml IV SCH ×2 (17:11→23:13)
--- NOTE | 2019-06-12 18:00 | NUR ---
RN NOTES PATIENT REFUSED MRI, EXPLAINED RISKS AND BENEFITS BUT PATIENT STILL REFUSED. HE SAID HE WILL DO IT TOMORROW. WILL ENDORSE TO SHOPPING INSPECTOR NURSE.
--- NOTE | 2019-06-12 18:43 | NUR ---
MS RN CLOSING NOTES PATIENT IN BED RESTING COMFORTABLY IN MODERATE HIGH BACK REST. A/O X4. NO S/S OF DISTRESS NOTED THROUGHOUT THE SHIFT. REFUSED SKIN/PHYSICAL ASSESSMENT. IV FLUIDS ON RIGHT UPPER ARM #18 WITH NS RUNNING @75ML/HR. PATENT AND INTACT. ALL NURSING NEEDS ATTENDED. SAFETY MEASURES IN PLACE, BED IN LOW LOCKED POSITION WITH SIDE RAILS UP X2. CALL LIGHT WITHIN REACH. WILL ENDORSE TO BODY AND FRAME MAN NURSE FOR ADRIAN.
--- NOTE | 2019-06-12 19:15 | NUR ---
RN medsurg notes Received Pt from morning nurse. Pt is alert and oriented x3. Pt is resting in bed comfortably. Respiration is normal. No SOB. No nausea or vomiting. Pt denies any pain or discomfort at this time. IV sites at GONZALEZ midline# 18 is clean, intact, patent and infusing well NS @ 75 ml/hr. Per AM nurse Pt refused wound care treatment and MRI. per Am nurse is aware and informed. Instructed to call. Safety precautions is maintained. Bed at low position, brakes locked, side rails upX3, bed alarm is on, and call light is within reach. Turn and repositioned Q 2hr. Keep Pt clean, dry and comfortable. Will continue to monitor.
[2019-06-12] MEDS: VANCOMYCIN 0.75 GM in IV D5W 250 ML IV SCH (19:50)
--- NOTE | 2019-06-12 20:00 | NUR ---
CATHERINE forrestersukhoa notes Pt refused VS at 1999. Offered multiple times. Pt stated " I want to sleep. Comeback later." Made aware risks and benefits. Pt keep refusing. Will try again later. Will continue to monitor.
[2019-06-12 20:30] VITALS: BP 91/28
--- NOTE | 2019-06-12 20:40 | NUR ---
RN usamasur notes Pt signed informed consent for bilateral lower extremity debriment incision and drainage, possible right second digit amputation possible wound vac. Pt verbalized understanding. Pt will be NPO starts at midnight. Pt verbalized understanding. Will continue to monitor.
[2019-06-12 22:30] VITALS: BP 95/50
[2019-06-13] VITALS (7 sets, daily range): BP systolic 73–166; BP diastolic 45–75
[2019-06-13] MEDS: VANCOMYCIN 0.75 GM in IV D5W 250 ML IV SCH ×2 (03:36→13:08)
[2019-06-13] MEDS: ZOSYN IVPB 3.375 G in IV D5W 50ml IV SCH ×2 (05:26→13:10)
--- NOTE | 2019-06-13 06:50 | NUR ---
RN medsurg closing notes Pt is resting in bed comfortably. Awaken easily. Respiration is normal. No SOB. No nausea or vomiting. No S/S of distress noted. VS is stable. Afebrile. IV sites GONZALEZ midline #18 is intact, patent and SL. Wound care provided and skin provided. Kept Pt clean, dry and comfortable. Pictures taken and placed in Pt's chart. Pt tolerated activity well. Routine meds were given as ordered. All needs met and attended. Turned and repositioned Q 2 hr. Safety precautions is maintained. Bed at low positioned, brakes locked, side rails upx3, bed alarm is on and call light is within reach. Will endorse to morning nurse for ADRIAN.
[2019-06-13 07:32] LABS: BASOPHILS # (AUTO) 0.1 /CMM (0.0-0.2); BASOPHILS % (AUTO) 0.2 % (0.0-2.0); EOSINOPHILS % (AUTO) 0.1 % (0.0-6.0); HEMATOCRIT 40 % (39-51); LYMPHOCYTES # (AUTO) 1.5 /CMM (0.8-4.8); LYMPHOCYTES % (AUTO) 4.3 % (20.0-44.0); MEAN CORPUSCULAR HGB CONC 33 g/dl (31.0-36.0); MEAN CORPUSCULAR VOLUME 98 fL (80-96); MONOCYTES # (AUTO) 1.8 /CMM (0.1-1.30); MONOCYTES % (AUTO) 5.1 % (2.0-12.0); NEUTROPHILS # (AUTO) 32.3 /CMM (1.8-8.9); NEUTROPHILS % (AUTO) 90.3 % (43.0-81.0); PLATELET COUNT (AUTO) 505 /CMM (150-450); RED BLOOD CELL COUNT(AUTO) 4.09 MIL/uL (4.5-6.0)
--- NOTE | 2019-06-13 07:37 | NUR ---
TEXTED DR. HARVEY FOR MRI APPROVAL.
[2019-06-13 07:44] LABS: CALCIUM, SERUM 7.9 mg/dL (8.5-10.1); CREATININE 0.8 mg/dL (0.6-1.3); MAGNESIUM 1.5 mg/dL (1.8-2.4); PHOSPHORUS 3.4 mg/dL (2.5-4.9); POTASSIUM 4.3 mmol/L (3.5-5.1)
[2019-06-13 07:53] LABS: THYROID STIMULATING HORMONE 1.247 uIU/mL (0.358-3.74)
[2019-06-13 07:55] LABS: WHITE BLOOD COUNT (AUTO) 35.8 K/uL (4.3-11.0)
--- NOTE | 2019-06-13 08:00 | NUR ---
MS RN OPENING NOTES Received Patient asleep and resting in bed. VS stable with no acute distress. Breathing even and unlabored on room air with no respiratory distress. No signs and symptoms of pain at this time. 18g Midline on GONZALEZ clean, dry, intact and flushing well. Wound dressings intact. NPO precautions in place. Safety precautions in place. Bed locked and set to lowest position with side rails x 2 up. Call light with in reach. Will continue to monitor.
[2019-06-13 09:59] LABS: BAND % (MANUAL) 11 % (0.0-5.0); LYMPHOCYTES % (MANUAL) 3 % (16-48); MONOCYTES % (MANUAL) 7 % (0-11.0); NEUTROPHILS % (MANUAL) 79 (42-76)
[2019-06-13] MEDS ORDERED: FENTANYL PF 100MCG/2ML AMPUL ONE (10:31)
--- NOTE | 2019-06-13 10:37 | NUR ---
MS RN NOTES Patient taken to OR at this time. Patient in stable condition.
[2019-06-13] MEDS ORDERED: BUPIVACAINE 0.5 % PF 150 MG/30 ML VIAL ONE (11:01)
[2019-06-13] MEDS ORDERED: LIDOCAINE HCL/MPF 1% 30 ML VIAL IJ ONE (11:01)
[2019-06-13] MEDS ORDERED: HYDROMORPHONE INJ 2 MG/ML DISP.SYRIN ONE (11:05)
[2019-06-13] MEDS ORDERED: ALBUTEROL FS 2.5 MG/3 ML VIAL.NEB ONE (11:36)
[2019-06-13] MEDS ORDERED: ALBUTEROL HALF STRENGTH 1.25 MG/3 ML VIAL.NEB ONE (11:37)
--- NOTE | 2019-06-13 13:00 | NUR ---
received pt from OR, s/p BLLE excision and debridement, I and D, a/o x4, A fib with RVR post op, Dr Crenshaw notified, orders received and carried out, surgical dressings on no bleeding noted, pt is very non compliant, yelling, wants his wheelchair and go home.
[2019-06-13] MEDS: Magnesium 1GM/D5W 100ML PREMIX 100 ML IV SCH ×2 (13:06→14:02)
--- NOTE | 2019-06-13 13:15 | NUR ---
MS RN NOTES Patient transferred to ICU from OR. All belongings with Patient. Report given to Jordan ALEXANDER.
[2019-06-13] MEDS ORDERED: AMIODARONE 900 MG in IV D5W 482 ML IV PRN (13:30)
[2019-06-13] MEDS ORDERED: AMIODARONE 150 MG in IV D5W 100 ML IV ONE (13:30)
--- NOTE | 2019-06-13 14:00 | NUR ---
PATIENT SCREAMING , "SEND ME HOME". I"M DISCHARGING MYSELF. I KNOW MY RIGHTS". CONTINUOUSLY CURSING AT NURSES CALLING US WET BACK. PAGED AND SPOKE TO KARRI JEFFRIES MD REGARDING PATIENT, UNABLE TO START AMIODARONE DRIP, REFUSING ALL MEDS AND THREATENING TO PULL OUT IV LINE IF MORE MEDICATIONS GIVEN. PATIENT REFUSING TO BE PLACED ON MONITOR. MD SPOKE TO PATIENT TO NO AVAIL. INSISTING TO GO HOME. KAMI CASE MANAGEMENT MADE AWARE OF SITUATION. NO FAMILY MEMBER ON CONTACT LIST. PATIENT REFUSED TO GIVE BROTHER'S NUMBER TO CALL. NURSE SCREEN STRETCHER AWARE.
--- NOTE | 2019-06-13 14:30 | NUR ---
PATIENT ASKED AND SIGNED AMA FORM. NURSE TRACTOR TRAILER MECHANIC SPEAKING TO HIM. PATIENT WAS ASKED TO GIVE NUMBER FOR US CALL TO PICK HIM UP - TRIED TO CALL NUMBER HE GAVE BUT NOBODY IS PICKING UP. PATIENT INSISTING, SCREAMING TO PUT HIM ON A WHEELCHAIR AND WHEEL HIM OUT TO THE FRONT OF THE HOSPITAL AND HE WILL TAKE CARE OF HIMSELF FROM THERE.
--- NOTE | 2019-06-13 15:00 | NUR ---
NURSE PRODUCT DIRECTOR DANYEL SPEAKING TO IVETH OLIVAREZ. IVETH OKAYED TO WHEEL PATIENT IN FRONT AND GIVE HIM A TAXI VOUCHER TO GO HOME. PATIENT GAVE ADDRESS THATS LISTED AND SAME ON THE FACESHEET.
--- NOTE | 2019-06-13 15:10 | NUR ---
DR. RUSSELL MADE AWARE OF PATIENT LEAVING AMA BY CATHERINE CALVILLO.
--- NOTE | 2019-06-13 15:30 | NUR ---
DR. LOCK IN TO SEE PATIENT. MD UPDATED. MD SPOKE TO PATIENT AT BEDSIDE, MD EXPLAINED TO PATIENT CONDITION AND POSSIBLE COMPLICATIONS OF LEAVING HOSPITAL. PATIENT REMAINED DECIDED TO GO HOME INSPITE MD EXPLANATION. CASE MANAGEMENT ALSO AT BEDSIDE. Addendum: 06/13/19 at 1548 by SELENA BERKOWITZ RN PER DR. LOCK-PATIENT'S RIGHTS TO DECIDE IF HE WANTS TO GO LEAVE.
--- NOTE | 2019-06-13 16:07 | NUR ---
pt taken down to the main entrance by the wheelchair and helped to get into the taxi.
== END 2019-06-13 15:55 | disposition left against medical advice (07) | DRG 853 ==
LOC: ER 09:44 → MED 11:26 → ICU 06-13 12:35
PROVIDERS: ADMIT Student in an Organized Health Care Education/Training Program; ATTEND Student in an Organized Health Care Education/Training Program
PROC: 05H933Z Insertion of Infusion Device into Right Brachial Vein, Percutaneous Approach (ICD-10-PCS; 2019-06-12)
PROC: B54MZZA Ultrasonography of Right Upper Extremity Veins, Guidance (ICD-10-PCS; 2019-06-12)
PROC: 0JBR0ZZ Excision of Left Foot Subcutaneous Tissue and Fascia, Open Approach (ICD-10-PCS; principal; 2019-06-13)
PROC: 0JBP0ZZ Excision of Left Lower Leg Subcutaneous Tissue and Fascia, Open Approach (ICD-10-PCS; 2019-06-13)
PROC: 0JBQ0ZZ Excision of Right Foot Subcutaneous Tissue and Fascia, Open Approach (ICD-10-PCS; 2019-06-13)
DX: A41.9 Sepsis, unspecified organism (principal); E43 Unspecified severe protein-calorie malnutrition; E11.52 Type 2 diabetes mellitus with diabetic peripheral angiopathy with gangrene; M86.9 Osteomyelitis, unspecified; I96 Gangrene, not elsewhere classified; E87.1 Hypo-osmolality and hyponatremia; E87.2 Acidosis; L03.115 Cellulitis of right lower limb; L03.116 Cellulitis of left lower limb; I47.1 Supraventricular tachycardia; D72.829 Elevated white blood cell count, unspecified; E11.621 Type 2 diabetes mellitus with foot ulcer; L97.529 Non-pressure chronic ulcer of other part of left foot with unspecified severity; E11.69 Type 2 diabetes mellitus with other specified complication; L97.519 Non-pressure chronic ulcer of other part of right foot with unspecified severity; D64.9 Anemia, unspecified; D47.3 Essential (hemorrhagic) thrombocythemia; E86.1 Hypovolemia; E78.5 Hyperlipidemia, unspecified; I10 Essential (primary) hypertension; Z68.31 Body mass index [BMI] 31.0-31.9, adult; F17.210 Nicotine dependence, cigarettes, uncomplicated; I48.91 Unspecified atrial fibrillation; I95.9 Hypotension, unspecified; E83.51 Hypocalcemia; E66.9 Obesity, unspecified; J43.9 Emphysema, unspecified; E11.42 Type 2 diabetes mellitus with diabetic polyneuropathy
CPT/HCPCS: 36415; 36569; 71045-TC; 73590-TC; 73630-TC; 80048-TC; 80061-TC; 80076-TC; 80202-TC; 83605-TC; 83735-TC; 84100-TC; 84443-TC; 85025-TC; 85610-TC; 85730-TC; 86850-TC; 87040-TC; 87070-TC; 87075-TC; 87081-TC; 87186-TC; 88305-TC; 88311-TC; A4217; A6253; A6403; G0378; J0282; J1100; J1170; J2370; J2405; J2543; J2704; J3010; J3370; J3475; J3490; J7030; J7040; J7050; J7060

== ENCOUNTER 2019-06-15 11:37 | Inpatient (IN) | payer MEDICARE, MEDICAID ==
[~2019-06-15] VITALS: Ht 175.3 cm; Wt 87.1 kg
[~2019-06-15 11:37] MED LIST changes: -CEFT1VIA15 IV; -METF-442 PO; -SIMV-49 PO; +SIMV40TA5 PO
--- NOTE | 2019-06-15 11:48 | NUR ---
[id number] AND PET TEAM, FROM HOME, CAME IN DUE TO DANGER TO SELF, NOT EATING DRINKING, PET TEAM WRITING A HOLD FOR 5150, -SI/HI, DRINK ALCOHOL EVERYDAY, TO ER BED 11. NOTED WITH BILATERAL LOWER EXTREMITY MULTIPLE WOUNDS. CHANGED TO HOSPITAL GOWN, PROVIDED W WARM BLANKET, AWAITING MD ROBERTSON.
--- NOTE | 2019-06-15 11:55 | NUR ---
DR CLEANING AT BEDSIDE
[2019-06-15 12:28] LABS: BASOPHILS # (AUTO) 0.1 /CMM (0.0-0.2); BASOPHILS % (AUTO) 0.5 % (0.0-2.0); EOSINOPHILS % (AUTO) 0.2 % (0.0-6.0); HEMATOCRIT 43 % (39-51); HEMOGLOBIN 14.1 g/dL (13.5-17.5); LYMPHOCYTES # (AUTO) 2.1 /CMM (0.8-4.8); LYMPHOCYTES % (AUTO) 12.6 % (20.0-44.0); MEAN CORPUSCULAR HGB CONC 33 g/dl (31.0-36.0); MEAN CORPUSCULAR VOLUME 98 fL (80-96); MONOCYTES % (AUTO) 5.8 % (2.0-12.0); NEUTROPHILS # (AUTO) 13.6 /CMM (1.8-8.9); NEUTROPHILS % (AUTO) 80.9 % (43.0-81.0); PLATELET COUNT (AUTO) 546 /CMM (150-450); RED BLOOD CELL COUNT(AUTO) 4.39 MIL/uL (4.5-6.0); WHITE BLOOD COUNT (AUTO) 16.9 K/uL (4.3-11.0)
[2019-06-15] MEDS ORDERED: IV NS 0.9% 1,000 ML BAG IV ONE (12:30)
[2019-06-15] MEDS ORDERED: PIPERACILLIN /TAZOBACTAM 3.375 G in IV D5W 50 ML IV ONE (12:30)
[2019-06-15] MEDS ORDERED: VANCOMYCIN 1 GM in IV D5W 250 ML IV ONE (12:30)
[2019-06-15] MEDS ORDERED: PIPERACILLIN /TAZOBACTAM 3.375 G VIAL IV ONE (12:39)
[2019-06-15] MEDS ORDERED: VANCOMYCIN 1 GM VIAL ONE (12:39)
[2019-06-15 12:40] LABS: CALCIUM, SERUM 8.5 mg/dL (8.5-10.1); CARBON DIOXIDE 26 mmol/L (21-32); CHLORIDE 99 mmol/L (98-107); CREATININE 0.8 mg/dL (0.6-1.3); GLUCOSE 119 mg/dL (74-106); POTASSIUM 3.8 mmol/L (3.5-5.1); SODIUM SERUM 132 mmol/L (136-145); UREA NITROGEN, BLOOD 22 mg/dL (7-18)
[2019-06-15 12:47] LABS: ACETAMINOPHEN 0 ug/ml (10-30); ALANINE AMINOTRANSFERASE 43 U/L (12-78); ALBUMIN 1.7 g/dL (3.4-5.0); ALCOHOL, BLOOD < 3 mg/dL (0-0); ALKALINE PHOSPHATASE 121 U/L (46-116); ASPARTATE AMINOTRANSFERASE 60 U/L (15-37); BILIRUBIN,DIRECT 0.3 mg/dL (0.0-0.2); BILIRUBIN,TOTAL 0.5 mg/dL (0.2-1.0); SALICYLATE 4.7 mg/dL (2.8-20.0); TOTAL PROTEIN, SERUM 7.4 g/dL (6.4-8.2)
--- NOTE | 2019-06-15 13:02 | NUR ---
CALLED NURSING SUP FOR BED
[2019-06-15 13:27] LABS: BAND % (MANUAL) 2 % (0.0-5.0); LYMPHOCYTES % (MANUAL) 13 % (16-48); MONOCYTES % (MANUAL) 4 % (0-11.0); NEUTROPHILS % (MANUAL) 81 (42-76)
--- NOTE | 2019-06-15 14:19 | NUR ---
REPORT GIVEN TO ELVA OF MS UNIT
--- NOTE | 2019-06-15 14:38 | NUR ---
PER NURSING SUP DO NOT BRING THE PATIENT UNTIL SITTER IS PROVIDED
[2019-06-15] MEDS ORDERED: ONDANSETRON HCL/PF 4 MG/2 ML VIAL IVP PRN (15:00)
[2019-06-15] MEDS ORDERED: ACETAMINOPHEN 325 MG TABLET PO PRN (15:00)
[2019-06-15] MEDS ORDERED: Z GUARD REMEDY 2 OZ OINT TP PRN (15:00)
[2019-06-15] MEDS ORDERED: MAG HYDROX/AL HYDROX/SIMETH 30 ML UDC PO PRN (15:00)
[2019-06-15] MEDS ORDERED: DEXTROSE 50%-WATER 50 ML DISP.SYRIN IV PRN (15:00)
[2019-06-15] MEDS ORDERED: MAGNESIUM HYDROXIDE 30 ML UDC PO PRN (15:00)
[2019-06-15] MEDS ORDERED: FEE PK DOSING 1 MIN EA MC ONE (15:07)
[2019-06-15] MEDS: BENAZEPRIL HCL 10 MG TABLET PO SCH (17:00)
[2019-06-15] MEDS: BLOOD SUGAR DIAGNOSTIC 1 EACH STRIP IN SCH ×2 (17:30→21:48)
--- NOTE | 2019-06-15 18:00 | NUR ---
TRANSFERRED TO MS UNIT BY TECH
--- NOTE | 2019-06-15 18:24 | NUR ---
ADMISSION NOTE PT WAS BROUGHT UP AT THIS TIME VIA ALICIA, A/O X4 BREATHING EVEN AND UNLABORED OONR A WITH NO S/S OF ANY DISTRESS OR PAIN, IV IS PATENT AND INTACT, ALL BELONGINGS AT BEDSIDE, SAFETY PRECAUTIONS IN PLACE, CALL LIGHT IN REACH, WILL MONITOR ACCORDINGLY AND ENDORSE TO NIGHT RN
--- NOTE | 2019-06-15 18:56 | NUR ---
CLOSING NOTE PT A/O X4 STABLE, ALL NEEDS ATTENDED TO, WILL ENDORSE CONTINUITY OF CARE TO NIGHT RN
--- NOTE | 2019-06-15 19:45 | NUR ---
MS RN OPENING NOTES RECEIVED PATIENT FROM MORNING SHIFT, ALERT AND ORIENTED X 3. VERBALLY RESPONSIVE AND ABLE TO FOLLOW DIRECTIONS. BREATHING REGULAR AND UNLABORED ON ROOM AIR. RIGHT WRIST G22 AND LEFT AC G20 IV LINES INTACT AND PATENT, FLUSHING WELL WITH NO BLEEDING OR S/S OF INFECTION/INFILTRATION OBSERVED. BODY ASSESSMENT DONE, NOTED WITH MULTIPLE WOUNDS WITH FULL THICKNESS LOSS ON LEFT EXTENDING TO RIGHT LOWER BACK AND ALSO FULL THICKNESS LOSS ON LEFT CALF. BLADDER AND BOWEL CONTINENT WITH URINAL, CLEAR YELLOW URINE OBSERVED ON MODERATE AMOUNT. BED LOW AND LOCKED ON SEMI FOWLERS POSITION. CALL LIGHT IN REACH. WILL CONTINUE TO MONITOR.
--- NOTE | 2019-06-15 20:00 | NUR ---
MS RN NOTES ON 5150 HOLD FOR 72HRS, STARTED 06/15/2019 1117AM TO 06/18/2019 1117AM FOR DANGER TO SELF/UNABLE TO CARE FOR SELF, WITH 1:1 SITTER ON BEDSIDE. CLOSELY MONITORED.
[2019-06-15] MEDS: HYDROCODONE/APAP 5/325MG 1 EACH TABLET PO PRN (20:29)
[2019-06-15] MEDS: IV NS 0.9% 1,000 ML IV PRN (20:31)
--- NOTE | 2019-06-15 20:40 | NUR ---
MS RN NOTES COMPLAINED OF 7/10 CALF PAIN, NORCO 5/325 GIVEN BY MOUTH. VITAL SIGN WNL. NON-PHARMACOLOGICAL INTERVENTIONS PROVIDED. WILL CONTINUE TO MONITOR.
[2019-06-15] MEDS: CEFEPIME 1 GM in IV D5W 50 ML IV SCH (21:28)
[2019-06-15] MEDS: ZOLPIDEM TARTRATE 5 MG TABLET PO PRN (21:44)
--- NOTE | 2019-06-15 21:50 | NUR ---
MS RN NOTES COMPLAINED OF INABILITY TO FALL ASLEEP, AMBIEN 5MG GIVEN BY MOUTH. NON-PHARMACOLOGICAL INTERVENTIONS DONE. WILL CONTINUE TO MONITOR.
--- NOTE | 2019-06-15 21:50 | NUR ---
MS RN NOTES BS 184mg/dl, 3UNITS REGULAR INSULIN GIVEN SQ. MONITORED FOR S/S OF HYPO/HYPERGLYCEMIA. SNACKS PROVIDED.
[2019-06-15] MEDS: INSULIN REGULAR, HUMAN 100 UNIT/ML 3 ML VIAL SQ PRN (21:51)
[2019-06-15] MEDS: VANCOMYCIN 0.75 GM in IV D5W 250 ML IV SCH (22:18)
--- NOTE | 2019-06-16 00:41 | NUR ---
MS RN NOTES ROOM CHANGE, TRANSFERRED TO ROOM 327-2.
[2019-06-16] MEDS: VANCOMYCIN 0.75 GM in IV D5W 250 ML IV SCH ×3 (04:02→21:15)
[2019-06-16 04:26] LABS: BASOPHILS # (AUTO) 0.1 /CMM (0.0-0.2); BASOPHILS % (AUTO) 0.7 % (0.0-2.0); EOSINOPHILS % (AUTO) 0.6 % (0.0-6.0); HEMATOCRIT 39 % (39-51); HEMOGLOBIN 12.9 g/dL (13.5-17.5); LYMPHOCYTES # (AUTO) 1.9 /CMM (0.8-4.8); LYMPHOCYTES % (AUTO) 18.7 % (20.0-44.0); MEAN CORPUSCULAR HGB CONC 33 g/dl (31.0-36.0); MEAN CORPUSCULAR VOLUME 97 fL (80-96); MONOCYTES # (AUTO) 0.8 /CMM (0.1-1.30); MONOCYTES % (AUTO) 8.2 % (2.0-12.0); NEUTROPHILS # (AUTO) 7.1 /CMM (1.8-8.9); NEUTROPHILS % (AUTO) 71.8 % (43.0-81.0); PLATELET COUNT (AUTO) 476 /CMM (150-450); RED BLOOD CELL COUNT(AUTO) 4.02 MIL/uL (4.5-6.0); WHITE BLOOD COUNT (AUTO) 9.9 K/uL (4.3-11.0)
[2019-06-16 04:40] LABS: BILIRUBIN,TOTAL 0.4 mg/dL (0.2-1.0); CALCIUM, SERUM 7.8 mg/dL (8.5-10.1); CREATININE 0.6 mg/dL (0.6-1.3); MAGNESIUM 1.6 mg/dL (1.8-2.4); PHOSPHORUS 3.3 mg/dL (2.5-4.9); POTASSIUM 3.5 mmol/L (3.5-5.1); TOTAL PROTEIN, SERUM 6.3 g/dL (6.4-8.2)
[2019-06-16 04:46] LABS: ALBUMIN 1.4 g/dL (3.4-5.0)
--- NOTE | 2019-06-16 04:55 | NUR ---
MS CATHERINE NOTES FRANCHESCA FROM LAB CALLED AND REPORTED CRITICALLY LOW ALBUMIN LEVEL OF 1.4; NOTIFIED, AWAITING FOR ORDERS. Addendum: 06/16/19 at 0512 by MELONY ISAAC RN AWARE WITH NO NEW ORDERS.
--- NOTE | 2019-06-16 06:00 | NUR ---
MS RN NOTES BODY ASSESSMENT DONE; SEEN WITH LEFT TOE AND LEFT EAR WOUND, PHOTO TAKEN KEPT ON THE CHART. INITIAL WOUND TREATMENT PROVIDED.
[2019-06-16] MEDS: BLOOD SUGAR DIAGNOSTIC 1 EACH STRIP IN SCH ×4 (06:31→22:03)
--- NOTE | 2019-06-16 06:41 | NUR ---
MS RN CLOSING NOTES PATIENT IN BED, ALERT AND ORIENTED X 3. VERBALLY RESPONSIVE AND ABLE TO FOLLOW DIRECTIONS. BREATHING REGULAR AND UNLABORED ON ROOM AIR. RIGHT WRIST G22 AND LEFT AC G20 IV LINES INTACT AND PATENT, INFUSING WELL WITH NO BLEEDING OR S/S OF INFECTION/INFILTRATION OBSERVED. WOUND TREATMENTS PROVIDED. NO S/S OR VERBALIZED SUICIDAL IDEATION NOTED WITHIN THE SHIFT. ON IV ATB'S FOR CELLULITIS/OSTEOMYELITIS WITH NO DRUG ADVERSE REACTIONS SEEN. MAINTAINED ON 1:1 SITTER. CLOSELY MONITORED. BED LOW AND LOCKED ON SEMI FOWLERS POSITION. CALL LIGHT IN REACH. WILL ENDORSE TO MORNING SHIFT FOR ADRIAN.
--- NOTE | 2019-06-16 08:00 | NUR ---
m/s station manager: initial assessment received pt in bed awake, a/ox3-4, easily irritable. pt doesn't want to get bothered for skin assessment at this time. sitter at bedside. no apparent distress noted. will continue to monitor.
[2019-06-16] MEDS: CEFEPIME 1 GM in IV D5W 50 ML IV SCH ×2 (08:17→20:08)
[2019-06-16] MEDS: SPIRONOLACTONE 25 MG TABLET PO SCH (08:37)
[2019-06-16] MEDS: ATORVASTATIN 10 MG TABLET PO SCH (08:37)
[2019-06-16] MEDS: glipiZIDE 10 MG TABLET PO SCH (08:37)
[2019-06-16] MEDS: BENAZEPRIL HCL 10 MG TABLET PO SCH ×2 (08:38→17:00)
[2019-06-16] MEDS: ASPIRIN EC 81 MG TABLET.DR PO SCH (08:38)
[2019-06-16] MEDS: HYDROCODONE/APAP 5/325MG 1 EACH TABLET PO PRN ×2 (10:22→17:53)
--- NOTE | 2019-06-16 11:00 | NUR ---
m/s shoeblack: md [facility].
--- NOTE | 2019-06-16 11:52 | NUR ---
SEGUNDO was informed by case management that pt. has an APS worker Tatyana . Pt. called APS SEGUNDO Joe. Tatyana was inquiring if pt. is going to be discharged home. SEGUNDO informed him that pt. was admitted yesterday, however it is recommended for pt. to go a SNF. Tatyana to follow up with SEGUNDO at a later time for an update.
--- NOTE | 2019-06-16 12:06 | NUR ---
WOUND CARE CONSULT: PT PRESENTS WITH MULTIPLE WOUNDS, PRESENT ON ADMISSION. LIMITED ASSESSMENT DUE TO PT DISCOMFORT AND REFUSAL TO CONTINUE SKIN ASSESSMENT. VERY LARGE WOUND NOTED TO LEFT LOWER LEG WITH UNDERMINING, NECROTIC WOUND NOTED TO RT 2ND TOE, BILATERAL HEEL WOUNDS NOTED, DRY ESCHARS NOTED TO FINGERS, VERY LARGE NECROTIC WOUND TO SACRUM WHICH EXTENDS ACROSS LOWER BACK TO BUTTOCKS, ALL PRESENT ON ADMISSION. RECOMMEND DPM CONSULT AND SURGICAL CONSULT. DR MONTAÑO NOTIFIED OF DPM CONSULT REQUEST AND DR VELASQUEZ RICHARDS NOTIFIED OF SURGICAL CONSULT REQUEST. FIRST STEP LOW AIRLOSS MATTRESS TO BE PLACED. RECOMMENDATIONS MADE FOR WOUND CARE AND DISCUSSED WITH NURSING STAFF. DEFER TO DPM FOR LOWER EXTREMITIES BUT RECOMMENDATIONS MADE FOR LEFT LOWER LEG WOUND TIL SEEN BY DPM. DISCUSSED WITH NURSING STAFF. PT IS CONTINENT AT THIS TIME. WILL SEE PRN. FUNK IN AGREEMENT WITH PLAN OF CARE. CURRENT ESTEBAN SCORE IS 13. Addendum: 06/16/19 at 1211 by TU JULIAN WNDNU Amended: Links added.
--- NOTE | 2019-06-16 12:30 | NUR ---
m/s sample clerk: dpm seen and examined by dr. lam and wants to use betadine, dressing, and jerry wrap to ble as stated. dr. lam planning to amputate the toe, pt in agreement with plan of care. awaiting orders. tx initiated as planned.
--- NOTE | 2019-06-16 12:42 | NUR ---
m/s ethanol maintenance mechanic: notes pt doesn't want his blood sugar tested, stated, "it was checked earlier by the student and it was okay." asked my rn student and says she didn't do yet. pt refused to re check his blood sugar.
[2019-06-16] MEDS: IV NS 0.9% 1,000 ML IV PRN (12:44)
[2019-06-16] MEDS: Magnesium 1GM/D5W 100ML PREMIX 100 ML IV SCH ×2 (12:45→14:19)
[2019-06-16 13:10] VITALS: BP 115/63
--- NOTE | 2019-06-16 15:25 | NUR ---
m/s production editor: notes received new order from dr. lam to Obtain consent for <Dr. Cal Lam/Dr. Cece Ramirez/Dr. Marcellus Duenas, , Bilateral lower extremity excisional debridement, Right 2nd digit, amputation, application of wound VAC. order acknowledged. pt aware and verbalized understanding. consents signed by pt and will keep pt npo after midnight.
[2019-06-16] MEDS: NICOTINE PATCH (7MG) 7 MG PATCH.TD24 TD SCH (15:32)
[2019-06-16 16:00] VITALS: BP 101/56
--- NOTE | 2019-06-16 17:13 | NUR ---
m/s clear coat sprayer: notes bs check 56, but accidently rejected, re check bs=53. orange juice given. pt is alert and oriented x4. no s/s of hypoglycemia. will re check bs.
--- NOTE | 2019-06-16 17:35 | NUR ---
m/s perlite grinder: notes dinner served. bs check=58. remains asymptomatic. will re check blood sugar in 15-30mins. sitter remains at bedside. will monitor.
[2019-06-16] MEDS: LACTOBACILLUS RHAMNOSUS GG 1 EACH CAP.SPRINK PO SCH (17:41)
--- NOTE | 2019-06-16 17:55 | NUR ---
m/s diesel service journeyman: notes re check bs=78. pt remains asymptomatic. needs attended. no distress noted. sitter remains at bedside. pt will be npo after midnight and procedure scheduled for early afternoon. dr. hammond (cardio) at bedside at this time for clearance. Addendum: 06/16/19 at 1821 by TRINIDAD LUNA DECORATING KILN OPERATOR pt c/o 02/25 generalized discomfort, medicated with norco 1 tab po at 1753. will continue to monitor.
--- NOTE | 2019-06-16 18:10 | NUR ---
m/s equal opportunity director: notes spoke with dr. hammond if pt is cleared for surgery, md will review his echo as stated. cn made aware.
--- NOTE | 2019-06-16 18:53 | NUR ---
m/s crm business analyst: notes pt with eyes close. resp. even and unlabored. sitter remains at bedside. needs attended. will monitor.
--- NOTE | 2019-06-16 19:00 | NUR ---
m/s floor person: notes report given to kerri (rn) for continuity of care.
--- NOTE | 2019-06-16 19:48 | NUR ---
MS RN OPENING NOTES RECEIVED PATIENT FROM MORNING SHIFT, ALERT AND ORIENTED X 3. VERBALLY RESPONSIVE AND ABLE TO FOLLOW DIRECTIONS. BREATHING REGULAR AND UNLABORED ON ROOM AIR. RIGHT WRIST G22 IV LINE INTACT AND PATENT, INFUSING WELL WITH NO BLEEDING OR S/S OF INFECTION/INFILTRATION OBSERVED. BODY ASSESSMENT DONE, NOTED WITH MULTIPLE WOUNDS WITH FULL THICKNESS LOSS ON LEFT EXTENDING TO RIGHT LOWER BACK AND ALSO FULL THICKNESS LOSS ON LEFT CALF. BLADDER AND BOWEL CONTINENT WITH URINAL ON BEDSIDE. ON 1:1 SITTER. NO S/S OR VERBALIZED SUICIDAL IDEATION OBSERVED. BED LOW AND LOCKED ON SEMI FOWLERS POSITION. CALL LIGHT IN REACH. WILL CONTINUE TO MONITOR.
[2019-06-16 20:00] VITALS: BP 110/64
--- NOTE | 2019-06-16 20:30 | NUR ---
MS RN NOTES SEEN AND EXAMINED BY WITH ORDERS TO START REMERON 15MG BY MOUTH QHS NOTED AND WILL CARRY OUT.
--- NOTE | 2019-06-16 21:00 | NUR ---
MS RN NOTES SPOKE TO THE PATIENT REGARDING GETTING SAMPLES ON HIS WOUND FOR WOUND CULTURES PER MD ORDER. REFUSED AND VERBALIZED "I WANT TO SLEEP, GIVE ME MY SLEEPING PILL". RISK AND BENEFITS EXPLAINED. AMBIEN 5MG GIVEN BY MOUTH. NON-PHARMACOLOGICAL INTERVENTIONS DONE. WILL TRY TO CONVINCE PATIENT AGAIN LATER. CONTINUOUSLY MONITORED.
[2019-06-16] MEDS: MIRTAZAPINE 15 MG TABLET PO SCH (21:04)
[2019-06-16] MEDS: ZOLPIDEM TARTRATE 5 MG TABLET PO PRN (21:05)
--- NOTE | 2019-06-16 21:55 | NUR ---
MS RN NOTES NOTED WITH BS OF 61mg/dl, ORANGE JUICE AND SANDWICH GIVEN. NO S/S OF HYPOGLYCEMIA OBSERVED. REMAINED ALERT AND ORIENTED X 4 WITH NO COMPLAINTS OF PAIN/DISCOMFORT. ENCOURAGED TO EAT AND DRINK BEFORE MIDNIGHT HE WAS ALSO NOTED WITH LOW BLOOD SUGAR IN THE MORNING. VERBALIZED UNDERSTANDING. WILL RECHECK BLOOD SUGAR AFTER 30MINS. CLOSELY MONITORED WITH 1:1 SITTER.
[2019-06-16 22:00] VITALS: BP 110/64
--- NOTE | 2019-06-16 22:20 | NUR ---
MS RN NOTES RECHECK BLOOD SUGAR AFTER 30MINS, NOTED WITH 100mg/dl. NO S/S OF HYPOGLYCEMIA NOTED. WILL CONTINUE TO MONITOR.
[2019-06-17] MEDS: MORPHINE SULFATE INJ 2 MG/ML DISP.SYRIN IV PRN (01:52)
--- NOTE | 2019-06-17 02:15 | NUR ---
MS RN NOTES PATIENT COMPLAINING OF UNABLE TO SLEEP AND REQUESTED TO SIT ON HIS WHEELCHAIR. EXPLAINED THAT HE WILL NOT FEEL COMFORTABLE SITTING AND SLEEPING ON HIS WHEELCHAIR. AGREED ON CLEANING AND REPOSITIONING HIM, BUT BEFORE THAT REQUESTED PAIN MEDICATION HE WAS ALSO COMPLAINING OF 8/10 CALF PAIN. MORPHINE 2MG GIVEN VIA IV PUSH. HELPED SENIOR SECURITY ANALYST WHILE CLEANING HIM BUT HE KEPT ON SCREAMING AND REFUSING TO TURN FOR US TO PUT ON THE CLEAN BED SHEET. UNABLE TO PUT THE CLEAN BED SHEET AND PADS PATIENT WAS UNCOOPERATIVE. TRIED EXPLAINING TO HIM THE BENEFITS OF PROPER AND WRINKLE FREE BEDDING BUT HE STILL REFUSED. SHOUTING "JUST PUT ON THE BLANKET AND LEAVE ME ALONE". PUT ON A CLEAN GOWN AND BLANKETS. RECONNECTED TO IV INFUSION. WILL CONTINUE TO MONITOR.
[2019-06-17] MEDS: VANCOMYCIN 0.75 GM in IV D5W 250 ML IV SCH ×3 (04:08→20:55)
--- NOTE | 2019-06-17 06:01 | NUR ---
MS RN NOTES SPOKE AGAIN TO THE PATIENT REGARDING GETTING SPECIMEN FOR WOUND CULTURES PER MD ORDER. REFUSED AGAIN AND VERBALIZED "LEAVE ME ALONE". RISK AND BENEFITS EXPLAINED 3X. WILL ENDORSE TO MORNING SHIFT FOR ADRIAN.
--- NOTE | 2019-06-17 06:35 | NUR ---
MS RN NOTES BS 53mg/dl NOTED. LUCINDA RENO MADE AWARE PATIENT IS ON NPO FOR SURGERY THIS AFTERNOON. PER [address] PATROL ROWDY GIVE ORANGE JUICE IT WILL BE ABSORBED BY THE BODY BEFORE NOON. NOTED AND CARRIED OUT. MONITORED FOR S/S OF HYPOGLYCEMIA. REMAINED ALERT AND ORIENTED X 3. ORANGE JUICE GIVEN. WILL RECHECK BS AFTER 30MINS.
[2019-06-17] MEDS: BLOOD SUGAR DIAGNOSTIC 1 EACH STRIP IN SCH ×4 (06:43→21:05)
--- NOTE | 2019-06-17 06:47 | NUR ---
MS RN CLOSING NOTES PATIENT IN BED, ALERT AND ORIENTED X 3. VERBALLY RESPONSIVE. BREATHING REGULAR AND UNLABORED ON ROOM AIR. RIGHT FOREARM G22 IV LINE INTACT AND PATENT, INFUSING WELL WITH NO BLEEDING OR S/S OF INFECTION/INFILTRATION OBSERVED. REFUSED WOUND TREATMENT, CLEANING AND REPOSITIONING. ALSO REFUSED TO GET SPECIMEN FOR WOUND CULTURE. RISK AND BENEFITS EXPLAINED 3X. NO S/S OR VERBALIZED SUICIDAL IDEATION NOTED WITHIN THE SHIFT. ON IV ATB'S FOR CELLULITIS/OSTEOMYELITIS WITH NO DRUG ADVERSE REACTIONS SEEN. MAINTAINED ON 1:1 SITTER. CLOSELY MONITORED. BED LOW AND LOCKED ON SEMI FOWLERS POSITION. CALL LIGHT IN REACH. WILL ENDORSE TO MORNING SHIFT FOR ADRIAN.
--- NOTE | 2019-06-17 07:11 | NUR ---
MS ALEXANDER NOTES RECHECK BS AND NOTED WITH 86mg/dl. NO S/S OF HYPOGLYCEMIA NOTED. REMAINED ALERT AND ORIENTED. WILL ENDORSE TO MORNING SHIFT FOR ADRIAN. Addendum: 06/17/19 at 0715 by MELONY ISAAC RN BS 81mg/dl NOT 86mg/dl
[2019-06-17 07:31] LABS: BASOPHILS % (AUTO) 0.4 % (0.0-2.0); EOSINOPHILS % (AUTO) 0.6 % (0.0-6.0); HEMATOCRIT 40 % (39-51); HEMOGLOBIN 13.1 g/dL (13.5-17.5); LYMPHOCYTES # (AUTO) 2.1 /CMM (0.8-4.8); LYMPHOCYTES % (AUTO) 17.7 % (20.0-44.0); MEAN CORPUSCULAR HGB CONC 33 g/dl (31.0-36.0); MEAN CORPUSCULAR VOLUME 97 fL (80-96); MONOCYTES # (AUTO) 0.9 /CMM (0.1-1.30); MONOCYTES % (AUTO) 7.5 % (2.0-12.0); NEUTROPHILS # (AUTO) 8.7 /CMM (1.8-8.9); NEUTROPHILS % (AUTO) 73.8 % (43.0-81.0); PLATELET COUNT (AUTO) 472 /CMM (150-450); RED BLOOD CELL COUNT(AUTO) 4.13 MIL/uL (4.5-6.0); WHITE BLOOD COUNT (AUTO) 11.8 K/uL (4.3-11.0)
[2019-06-17 08:00] VITALS: BP 129/66
[2019-06-17 08:01] LABS: CALCIUM, SERUM 7.5 mg/dL (8.5-10.1); CREATININE 0.7 mg/dL (0.6-1.3); MAGNESIUM 1.8 mg/dL (1.8-2.4); PHOSPHORUS 2.8 mg/dL (2.5-4.9); POTASSIUM 3.7 mmol/L (3.5-5.1)
--- NOTE | 2019-06-17 08:10 | NUR ---
ms rn received on bed, awake,alert,oriented x3,not in any form of distress, respirations even and unlabored,no sob noted, bilateral foot wounds w/ dressing dry and intact,sacral wounds present,patient refused to change/assess wounds,on 1:1 sitter for safety,all needs attended.
[2019-06-17] MEDS: SPIRONOLACTONE 25 MG TABLET PO SCH (09:00)
[2019-06-17] MEDS: LACTOBACILLUS RHAMNOSUS GG 1 EACH CAP.SPRINK PO SCH ×2 (09:00→17:07)
[2019-06-17] MEDS: NICOTINE PATCH (7MG) 7 MG PATCH.TD24 TD SCH ×2 (09:00→17:07)
[2019-06-17] MEDS: glipiZIDE 10 MG TABLET PO SCH (09:00)
[2019-06-17] MEDS: ATORVASTATIN 10 MG TABLET PO SCH (09:00)
[2019-06-17] MEDS: ASPIRIN EC 81 MG TABLET.DR PO SCH (09:00)
[2019-06-17] MEDS: BENAZEPRIL HCL 10 MG TABLET PO SCH ×2 (09:00→17:10)
--- NOTE | 2019-06-17 09:00 | NUR ---
ms rn patient on npo for surgery of wounds today at 12noon.
[2019-06-17] MEDS: CEFEPIME 1 GM in IV D5W 50 ML IV SCH ×2 (10:35→19:43)
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
[2019-06-17] MEDS ORDERED: BUPIVACAINE 0.5 % PF 150 MG/30 ML VIAL ONE (11:23)
[2019-06-17] MEDS ORDERED: LIDOCAINE HCL/MPF 1% 30 ML VIAL IJ ONE (11:23)
[2019-06-17] MEDS ORDERED: BACITRACIN 50000 UNITS/VIAL ONE ×2 (11:24→12:21)
[2019-06-17] MEDS ORDERED: HYDROMORPHONE INJ 2 MG/ML DISP.SYRIN ONE (11:29)
--- NOTE | 2019-06-17 11:30 | NUR ---
ms rn patient went down for surgery.
[2019-06-17 16:00] VITALS: BP 119/76
[2019-06-17] MEDS: INSULIN REGULAR, HUMAN 100 UNIT/ML 3 ML VIAL SQ PRN ×2 (18:49→21:09)
--- NOTE | 2019-06-17 19:00 | NUR ---
MS RN NO DISTRESS NOTED,ALL NEEDS ATTENDED.
--- NOTE | 2019-06-17 19:20 | NUR ---
MS RN OPENING NOTES RECEIVED PATIENT IN BED, ALERT, ORIENTED X 3. BREATHING EVEN AND UNLABORED. NOT IN ANY DISTRESS. LEFT FOREARM IV LINE INTACT AND PATENT. BLADDER AND BOWEL CONTINENT WITH URINAL ON BEDSIDE. DENIES SUICIDAL IDEATION SAFETY MEASURES IN PLACE. 1:1 SITTER AT BEDSIDE. CALL LIGHT WITHIN REACH. BED IN LOW AND LOCKED ON SEMI FOWLERS POSITION. WILL CONTINUE TO MONITOR.
[2019-06-17] MEDS: IV NS 0.9% 1,000 ML IV PRN (19:36)
[2019-06-17] MEDS: HYDROCODONE/APAP 5/325MG 1 EACH TABLET PO PRN (19:43)
[2019-06-17 20:00] VITALS: BP 100/58
--- NOTE | 2019-06-17 20:00 | NUR ---
RN NOTES PATIENT SIGNED CONSENT FOR SERIAL DEBRIDEMENT OF LOW BACK/ BUTTOCK/ SACRAL, LEFT HAND WOUNDS
--- NOTE | 2019-06-17 20:20 | NUR ---
RN NOTES DR. CHANDRA AT BEDSIDE. PATIENT NOW ON A 5250 HOLD STARTING 06/17/2019 AT 2017, WILL 07/01/2019 AT 2017. PATIENT INFORMED AND COPY PROVIDED TO THE PATIENT.
[2019-06-17] MEDS: MIRTAZAPINE 15 MG TABLET PO SCH (21:10)
--- NOTE | 2019-06-17 21:10 | NUR ---
RN NOTES BSL CHECKED- 319MG/DL. 8 UNITS OF INSULIN GIVEN PER SLIDING SCALE. SNACKS PROVIDED
[2019-06-17] MEDS: ZOLPIDEM TARTRATE 5 MG TABLET PO PRN (21:14)
--- NOTE | 2019-06-17 22:01 | NUR ---
RN NOTES I & D KIT PREPARED- PLACED AT BEDSIDE: #15 SCALPELS X 2 4 X 4 GAUZE IODINE BOTTLE SILVER NITRATE STICKS TO BE OBTAINED FROM PHARMACY
[2019-06-18] MEDS: VANCOMYCIN 0.75 GM in IV D5W 250 ML IV SCH ×3 (04:45→20:42)
[2019-06-18] MEDS: MORPHINE SULFATE INJ 2 MG/ML DISP.SYRIN IV PRN (06:50)
--- NOTE | 2019-06-18 06:51 | NUR ---
MS RN CLOSING NOTES PATIENT IN BED, ALERT, ORIENTED X 4. BREATHING EVEN AND UNLABORED. NOT IN ANY DISTRESS. PERIPHERAL IV INFUSING AT 80ML/HR. PATIENT C/O GENERALIZED PAIN, 04/28. BP-128/78, HR 76. MORPHINE 2MG IV GIVEN ORDERED. SAFETY MEASURES IN PLACE. 1:1 SITTER AT BEDSIDE. CALL LIGHT WITHIN REACH. BED IN LOW, LOCKED POSITION. WILL ENDORSE ADRIAN TO ONCOMING RN
[2019-06-18 07:08] LABS: BASOPHILS % (AUTO) 0.3 % (0.0-2.0); EOSINOPHILS % (AUTO) 0.3 % (0.0-6.0); HEMATOCRIT 38 % (39-51); HEMOGLOBIN 12.4 g/dL (13.5-17.5); LYMPHOCYTES # (AUTO) 2.2 /CMM (0.8-4.8); LYMPHOCYTES % (AUTO) 16.5 % (20.0-44.0); MEAN CORPUSCULAR HGB CONC 33 g/dl (31.0-36.0); MEAN CORPUSCULAR VOLUME 98 fL (80-96); MONOCYTES # (AUTO) 0.7 /CMM (0.1-1.30); NEUTROPHILS # (AUTO) 10.2 /CMM (1.8-8.9); NEUTROPHILS % (AUTO) 77.9 % (43.0-81.0); PLATELET COUNT (AUTO) 421 /CMM (150-450); RED BLOOD CELL COUNT(AUTO) 3.91 MIL/uL (4.5-6.0); WHITE BLOOD COUNT (AUTO) 13.1 K/uL (4.3-11.0)
[2019-06-18 07:10] LABS: CALCIUM, SERUM 7.5 mg/dL (8.5-10.1); CREATININE 0.6 mg/dL (0.6-1.3); MAGNESIUM 1.8 mg/dL (1.8-2.4); PHOSPHORUS 1.9 mg/dL (2.5-4.9)
[2019-06-18] MEDS: BLOOD SUGAR DIAGNOSTIC 1 EACH STRIP IN SCH ×4 (07:30→21:18)
[2019-06-18 08:00] VITALS: BP 118/70
--- NOTE | 2019-06-18 08:15 | NUR ---
ms rn received on bed, awake,alert,oriented x4,not in any form of distress, respirations even and unlabored,no sob noted, lungs are clear,abdomen soft,positive bowel sounds,denies pain at this time,all needs attended.
[2019-06-18] MEDS: glipiZIDE 10 MG TABLET PO SCH (09:00)
[2019-06-18] MEDS: LACTOBACILLUS RHAMNOSUS GG 1 EACH CAP.SPRINK PO SCH ×2 (09:00→18:14)
[2019-06-18] MEDS: ATORVASTATIN 10 MG TABLET PO SCH (09:00)
[2019-06-18] MEDS: BENAZEPRIL HCL 10 MG TABLET PO SCH ×2 (09:00→17:00)
[2019-06-18] MEDS: SPIRONOLACTONE 25 MG TABLET PO SCH (09:00)
[2019-06-18] MEDS: ASPIRIN EC 81 MG TABLET.DR PO SCH (09:00)
--- NOTE | 2019-06-18 09:00 | NUR ---
rn npo at this time for surgery.
[2019-06-18] MEDS ORDERED: Sodium Phosphate 7.5 MMOL in IV D5W 100 ML IV ONE (10:00)
[2019-06-18] MEDS: IV NS 0.9% 1,000 ML IV PRN (10:53)
[2019-06-18] MEDS: CEFEPIME 1 GM in IV D5W 50 ML IV SCH ×2 (10:53→20:02)
[2019-06-18] MEDS: NICOTINE PATCH (7MG) 7 MG PATCH.TD24 TD SCH (10:55)
--- NOTE | 2019-06-18 12:20 | NUR ---
ms rn blood sugar - 159 - coverage not given, patient is npo at this time for surgery of right finger.
[2019-06-18] MEDS ORDERED: SILVER NITRATE APPLICATOR 1 EA BOX TP STA (13:56)
[2019-06-18] MEDS ORDERED: LIDOCAINE 1%-EPI 1:100,000 20 ML VIAL TP ONE (14:00)
--- NOTE | 2019-06-18 15:00 | NUR ---
ms rn for debridement of the sacral wound, not right finger as previously stated.
[2019-06-18 16:00] VITALS: BP 99/57
[2019-06-18] MEDS: INSULIN REGULAR, HUMAN 100 UNIT/ML 3 ML VIAL SQ PRN ×2 (18:57→21:21)
--- NOTE | 2019-06-18 19:20 | NUR ---
RN Notes Received patient awake, alert and oriented x3, on room air with good saturation. Denies sob, pain, nausea and vomiting at this time. IV access on left forearm patent and intact with ongoing IVF infusing well. Dressing on lower back intact. Bilateral lower leg dressing intact with wound vac on left lower leg to continous suction at 125 mmhg. Patient denies any suicidal ideation or threat to harm self, sitter at bedside.. Safety measures and fall precaution in place. kept comfortable and attended. Will continue to monitor.
[2019-06-18 20:00] VITALS: BP 102/66
[2019-06-18] MEDS: MIRTAZAPINE 15 MG TABLET PO SCH (21:14)
[2019-06-18 22:00] VITALS: BP 102/66
[2019-06-19 04:00] VITALS: BP 130/66
[2019-06-19] MEDS: VANCOMYCIN 0.75 GM in IV D5W 250 ML IV SCH ×3 (05:28→21:35)
[2019-06-19] MEDS: BLOOD SUGAR DIAGNOSTIC 1 EACH STRIP IN SCH ×4 (06:37→21:33)
[2019-06-19] MEDS: INSULIN REGULAR, HUMAN 100 UNIT/ML 3 ML VIAL SQ PRN ×2 (06:38→21:39)
[2019-06-19] MEDS: IV NS 0.9% 1,000 ML IV PRN ×2 (06:52→21:35)
[2019-06-19 07:23] LABS: CALCIUM, SERUM 7.4 mg/dL (8.5-10.1); CREATININE 0.6 mg/dL (0.6-1.3); MAGNESIUM 1.5 mg/dL (1.8-2.4)
[2019-06-19 07:27] LABS: BASOPHILS % (AUTO) 0.4 % (0.0-2.0); EOSINOPHILS % (AUTO) 0.8 % (0.0-6.0); HEMATOCRIT 38 % (39-51); HEMOGLOBIN 12.9 g/dL (13.5-17.5); LYMPHOCYTES # (AUTO) 2.4 /CMM (0.8-4.8); LYMPHOCYTES % (AUTO) 22.2 % (20.0-44.0); MEAN CORPUSCULAR HGB CONC 34 g/dl (31.0-36.0); MEAN CORPUSCULAR VOLUME 96 fL (80-96); MONOCYTES # (AUTO) 0.7 /CMM (0.1-1.30); MONOCYTES % (AUTO) 6.5 % (2.0-12.0); NEUTROPHILS # (AUTO) 7.7 /CMM (1.8-8.9); NEUTROPHILS % (AUTO) 70.1 % (43.0-81.0); PLATELET COUNT (AUTO) 429 /CMM (150-450)
--- NOTE | 2019-06-19 07:50 | NUR ---
RN Notes Patient sleep well overnight, vital signs stable, afebrile. Patient denies any pain and discomfort. Kept both lower leg elevated with wound vac intact with settings in place, total out put within the shift 10ml. Voiding well. Patient refused to be moved overnight and doesn't want to be disturbed while sleeping. All needs attended. Will endorse accordingly.
--- NOTE | 2019-06-19 08:00 | NUR ---
MS RN OPENING NOTES Received Patient resting in bed. A/O x 3. VS stable with no acute distress. Breathing even and unlabored on room air with no respiratory distress. Denies pain. No signs and symptoms of pain. Wound dressings intact. Left leg wound vac intact running at 125mmHg. 22g PIV on LFA clean, dry, intact and flushing well with NS running at 80ml/hr. Safety precautions in place. Bed locked and set to lowest position with side rails x 2 up. All needs rendered at this time. Sitter at bedside. Call light within reach. Will continue to monitor.
[2019-06-19] MEDS: CEFEPIME 1 GM in IV D5W 50 ML IV SCH ×2 (09:03→20:29)
[2019-06-19] MEDS: SPIRONOLACTONE 25 MG TABLET PO SCH (09:03)
[2019-06-19] MEDS: LACTOBACILLUS RHAMNOSUS GG 1 EACH CAP.SPRINK PO SCH ×2 (09:04→18:15)
[2019-06-19] MEDS: BENAZEPRIL HCL 10 MG TABLET PO SCH ×2 (09:04→18:16)
[2019-06-19] MEDS: NICOTINE PATCH (7MG) 7 MG PATCH.TD24 TD SCH (09:04)
[2019-06-19] MEDS: ASPIRIN EC 81 MG TABLET.DR PO SCH (09:04)
[2019-06-19] MEDS: ATORVASTATIN 10 MG TABLET PO SCH (09:04)
[2019-06-19] MEDS: glipiZIDE 10 MG TABLET PO SCH (09:04)
[2019-06-19] MEDS: HYDROCODONE/APAP 5/325MG 1 EACH TABLET PO PRN (09:21)
[2019-06-19] MEDS ORDERED: K PHOS NEUTRAL 250 MG TABLET PO ONE (12:00)
[2019-06-19] MEDS: Magnesium 1GM/D5W 100ML PREMIX 100 ML IV SCH ×2 (12:26→12:52)
[2019-06-19] MEDS: MORPHINE SULFATE INJ 2 MG/ML DISP.SYRIN IV PRN ×2 (12:55→19:00)
--- NOTE | 2019-06-19 19:30 | NUR ---
MS RN PM OPENING NOTES BEDSIDE REPORT RECIEVED FROM MAGY ALEXANDER. Patient resting in bed. A/O x 3. NICK OROZCO SITTER AT THE BEDSIDE. Breathing even and unlabored on room air with no respiratory distress. MORPHINE RECENTLY ADMINSTERED AT 1900 PER REPORT PATIENT REPORTING PAIN BETTER RATES AT 4/10. Wound dressings intact. Left leg wound vac intact running at 125mmHg DRAINING SEROUSSANGUINOUS FLUID. PT ON Air Mattress and operational. 22g PIV on LFA clean, dry, intact with NS running at 80ml/hr. Safety precautions in place. Bed locked and set to lowest position with side rails x 2 up. Call light within reach.
--- NOTE | 2019-06-19 19:59 | NUR ---
MS RN CLOSING NOTES Patient resting in bed. A/O x 3. VS stable with no acute distress. Breathing even and unlabored on room air with no respiratory distress. Patient stated pain level of 8/10 s/p wound treatment. Administered Morphine 2mg IVP at 1900. Will endorse to oncoming shift. Wound dressings intact. Left leg wound vac intact running at 125mmHg. Air Mattress in place and operational. 22g PIV on LFA clean, dry, intact and flushing well with NS running at 80ml/hr. Safety precautions in place. Bed locked and set to lowest position with side rails x 2 up. All needs rendered at this time. Sitter at bedside. Call light within reach. Will endorse plan of care to oncoming shift.
[2019-06-19 20:00] VITALS: BP 103/52
[2019-06-19] MEDS: MIRTAZAPINE 15 MG TABLET PO SCH (21:29)
[2019-06-19] MEDS: ZOLPIDEM TARTRATE 5 MG TABLET PO PRN (21:29)
[2019-06-20] MEDS: VANCOMYCIN 0.75 GM in IV D5W 250 ML IV SCH ×3 (05:06→20:42)
[2019-06-20] MEDS: BLOOD SUGAR DIAGNOSTIC 1 EACH STRIP IN SCH ×4 (06:29→21:26)
[2019-06-20] MEDS: INSULIN REGULAR, HUMAN 100 UNIT/ML 3 ML VIAL SQ PRN ×2 (06:32→21:32)
--- NOTE | 2019-06-20 06:48 | NUR ---
MS RN PM CLOSING NOTES Patient resting in bed. A/O x 3. NICK OROZCO SITTER AT THE BEDSIDE. Breathing even and unlabored on room air with no respiratory distress.PATIENT DENIES PAIN. Wound dressings intact. Left leg wound vac intact running at 125mmHg DRAINING SEROUSSANGUINOUS FLUID. PT ON Air Mattress and operational. 22g PIV on LFA clean, dry, intact WITH NO S/S OF INFILTRATION. Safety precautions in place. Bed locked and set to lowest position with side rails x 2 up. Call light within reach.
[2019-06-20 07:35] LABS: CALCIUM, SERUM 7.7 mg/dL (8.5-10.1); CREATININE 0.6 mg/dL (0.6-1.3); MAGNESIUM 1.7 mg/dL (1.8-2.4); PHOSPHORUS 2.5 mg/dL (2.5-4.9); POTASSIUM 4.4 mmol/L (3.5-5.1)
--- NOTE | 2019-06-20 07:47 | NUR ---
RN MS OPENING NOTES Received patient on room air, no sob noted, patient denies pain at this time. Patient remains on a 5250 hold to 07/01 at 2017. Wound vac continously working at 125 mmHg for patients Left leg. NS @ 80 ml per hour, L FA #22. Bed at the lowest setting, call light within reach, side rails up x2.
[2019-06-20 07:48] LABS: BASOPHILS % (AUTO) 0.5 % (0.0-2.0); EOSINOPHILS % (AUTO) 1.6 % (0.0-6.0); HEMATOCRIT 42 % (39-51); HEMOGLOBIN 13.9 g/dL (13.5-17.5); LYMPHOCYTES # (AUTO) 2.1 /CMM (0.8-4.8); LYMPHOCYTES % (AUTO) 22.6 % (20.0-44.0); MEAN CORPUSCULAR HGB CONC 33 g/dl (31.0-36.0); MEAN CORPUSCULAR VOLUME 97 fL (80-96); MONOCYTES # (AUTO) 0.8 /CMM (0.1-1.30); MONOCYTES % (AUTO) 8.6 % (2.0-12.0); NEUTROPHILS # (AUTO) 6.3 /CMM (1.8-8.9); NEUTROPHILS % (AUTO) 66.7 % (43.0-81.0); PLATELET COUNT (AUTO) 377 /CMM (150-450); RED BLOOD CELL COUNT(AUTO) 4.32 MIL/uL (4.5-6.0); WHITE BLOOD COUNT (AUTO) 9.5 K/uL (4.3-11.0)
[2019-06-20 08:00] VITALS: BP 126/60
[2019-06-20] MEDS: LACTOBACILLUS RHAMNOSUS GG 1 EACH CAP.SPRINK PO SCH ×2 (08:49→17:00)
[2019-06-20] MEDS: BENAZEPRIL HCL 10 MG TABLET PO SCH ×2 (08:49→17:00)
[2019-06-20] MEDS: SPIRONOLACTONE 25 MG TABLET PO SCH (08:50)
[2019-06-20] MEDS: glipiZIDE 10 MG TABLET PO SCH (08:50)
[2019-06-20] MEDS: ASPIRIN EC 81 MG TABLET.DR PO SCH (08:50)
[2019-06-20] MEDS: ATORVASTATIN 10 MG TABLET PO SCH (08:50)
[2019-06-20] MEDS: HYDROGEL DRESSING 90 GM TUBE TP SCH (08:51)
[2019-06-20] MEDS: NICOTINE PATCH (7MG) 7 MG PATCH.TD24 TD SCH (08:51)
[2019-06-20] MEDS: CEFEPIME 1 GM in IV D5W 50 ML IV SCH ×2 (08:51→19:51)
[2019-06-20] MEDS: DAKINS QUARTER STRENGTH (0.125%) 480 ML BOTTLE TOP SCH (08:51)
[2019-06-20] MEDS ORDERED: Magnesium 1GM/D5W 100ML PREMIX 100 ML IV SCH (09:30)
[2019-06-20] MEDS: Magnesium 1GM/D5W 100ML PREMIX 100 ML IV SCH ×2 (09:45→10:34)
[2019-06-20] MEDS ORDERED: MAGNESIUM HYDROXIDE 30 ML UDC PO PRN (10:00)
[2019-06-20] MEDS ORDERED: BISACODYL SUPP (10 MG) 10 MG/SUPP.RECT SUPP.RECT RC ONE (10:00)
[2019-06-20] MEDS: DOCUSATE SODIUM 250 MG CAPSULE PO SCH (10:48)
--- NOTE | 2019-06-20 14:18 | NUR ---
RN NOTES Vanco trough of 30. Vancomycin on hold
[2019-06-20 16:00] VITALS: BP 92/56
[2019-06-20] MEDS: MORPHINE SULFATE INJ 2 MG/ML DISP.SYRIN IV PRN ×2 (16:38→22:36)
--- NOTE | 2019-06-20 18:30 | NUR ---
RN CLOSING NOTES Patient remains on room air, no sob noted, patient denies pain at this time and remains a/o x3. NS @ 80 ml per hour L fa #22. Patient stated that the pain is under control. Bed at the lowest setting, call light within reach, side rail up x2. Will give report to NOC RN for ADRIAN bedside.
--- NOTE | 2019-06-20 19:05 | NUR ---
COOK FRY OPENING NOTES Received patient A/O x3, asleep easily awaken on bed R side lying position on bed. On RA, no respiratory distress/SOB noted at this time. With wound vacc in place on continuous suction @ 125mmHg as ordered, serosanguineous secretions noted, dressing remained clean, dry and intact. On fall precautions, call light within easy reach. With sitter at bedside noted. Will continue to monitor accordingly.
[2019-06-20 20:00] VITALS: BP_SYST 102; BP_SYST 133; BP_DIAS 55; BP_DIAS 59
[2019-06-20] MEDS: IV NS 0.9% 1,000 ML IV PRN (20:04)
[2019-06-20] MEDS: MIRTAZAPINE 15 MG TABLET PO SCH (21:25)
[2019-06-20] MEDS: HYDROCODONE/APAP 5/325MG 1 EACH TABLET PO PRN (21:26)
[2019-06-20] MEDS: ZOLPIDEM TARTRATE 5 MG TABLET PO PRN (22:36)
--- NOTE | 2019-06-21 03:55 | NUR ---
HVAC/R INSTRUCTORSYSTEMS TESTING LABORATORY TECHNICIAN NOTES Received patient from ER via gurney accompanied by 2 ER staff and the daughter. A/O x4, awake, Farsi speaking, ophthalmic aide utilized. Admitted to TELE 311-2 due to Acute CHF under the service of JOYCE Jackson. Admission routine done, patient's belongings inventory completed by the assigned UTILITY WORKER [employer]. On tele monitor with NSR with BBB noted. Initial skin assessment done, no skin issues identified. Per daughter, the DPOA, patient lives with her at home. Patient ambulates with walker with assistance. Admission orders noted and carried out. Patient denies any discomfort at this time. Kept patient on bed clean, dry and comfortable. Call light within easy reach. Daughter remained at bedside. Will continue to monitor accordingly. Addendum: 06/21/19 at 0456 by CAROL MORENO RN wrong patient, wrong documentation
[2019-06-21] MEDS: VANCOMYCIN 0.75 GM in IV D5W 250 ML IV SCH ×3 (05:11→20:37)
[2019-06-21] MEDS: BLOOD SUGAR DIAGNOSTIC 1 EACH STRIP IN SCH ×4 (06:36→21:54)
[2019-06-21] MEDS: INSULIN REGULAR, HUMAN 100 UNIT/ML 3 ML VIAL SQ PRN ×2 (06:38→22:01)
[2019-06-21 06:47] LABS: BASOPHILS # (AUTO) 0.1 /CMM (0.0-0.2); BASOPHILS % (AUTO) 0.6 % (0.0-2.0); EOSINOPHILS % (AUTO) 1.4 % (0.0-6.0); HEMATOCRIT 45 % (39-51); HEMOGLOBIN 14.8 g/dL (13.5-17.5); LYMPHOCYTES # (AUTO) 2.5 /CMM (0.8-4.8); LYMPHOCYTES % (AUTO) 26.2 % (20.0-44.0); MEAN CORPUSCULAR HGB CONC 33 g/dl (31.0-36.0); MEAN CORPUSCULAR VOLUME 97 fL (80-96); MONOCYTES # (AUTO) 0.7 /CMM (0.1-1.30); MONOCYTES % (AUTO) 7.5 % (2.0-12.0); NEUTROPHILS # (AUTO) 6.2 /CMM (1.8-8.9); NEUTROPHILS % (AUTO) 64.3 % (43.0-81.0); PLATELET COUNT (AUTO) 447 /CMM (150-450); RED BLOOD CELL COUNT(AUTO) 4.67 MIL/uL (4.5-6.0); WHITE BLOOD COUNT (AUTO) 9.7 K/uL (4.3-11.0)
--- NOTE | 2019-06-21 06:55 | NUR ---
MS RN CLOSING NOTES Patient intermittently asleep, easily awaken. On RA. Medicated for pain, noted effective. With wound vacc on, settings noted with about 25ml serosanguineous output noted. Afebrile the whole shift. No new complaints made. All nursing needs attended. Due meds given as ordered. Kept on bed clean, dry and comfortable. Call light within easy reach. Endorsed to the next shift.
[2019-06-21 07:13] LABS: THYROID STIMULATING HORMONE 6.793 uIU/mL (0.358-3.74); URIC ACID 1.8 mg/dL (2.6-7.2)
--- NOTE | 2019-06-21 07:31 | NUR ---
CATHERINE MS OPENING NOTES Patient received on room air, no sob noted, patient denies pain at this time. A/O x3 and remains on 5250 that expires on 07/01. Wound vac remains on left leg that is on 125 intermittent suction. LFA 22 NS @ 80 ml per hour. Bed at the lowest setting, call light within reach, side rails up x2. Addendum: 06/21/19 at 0740 by LEIGHANN GUARDADO RN Sitter at bedside 1;1 at all times
[2019-06-21 07:35] LABS: CALCIUM, SERUM 7.8 mg/dL (8.5-10.1); CREATININE 0.6 mg/dL (0.6-1.3); MAGNESIUM 1.6 mg/dL (1.8-2.4); PHOSPHORUS 2.7 mg/dL (2.5-4.9); POTASSIUM 4.4 mmol/L (3.5-5.1)
[2019-06-21] MEDS: CEFEPIME 1 GM in IV D5W 50 ML IV SCH ×2 (07:50→19:29)
[2019-06-21] MEDS: LACTOBACILLUS RHAMNOSUS GG 1 EACH CAP.SPRINK PO SCH ×2 (08:10→17:14)
[2019-06-21] MEDS: glipiZIDE 10 MG TABLET PO SCH (08:10)
[2019-06-21] MEDS: ASPIRIN EC 81 MG TABLET.DR PO SCH (08:10)
[2019-06-21] MEDS: ATORVASTATIN 10 MG TABLET PO SCH (08:10)
[2019-06-21] MEDS: DOCUSATE SODIUM 250 MG CAPSULE PO SCH (08:10)
[2019-06-21] MEDS: MORPHINE SULFATE INJ 2 MG/ML DISP.SYRIN IV PRN ×4 (08:11→21:54)
[2019-06-21] MEDS: NICOTINE PATCH (7MG) 7 MG PATCH.TD24 TD SCH (08:11)
[2019-06-21] MEDS: HYDROGEL DRESSING 90 GM TUBE TP SCH (08:13)
[2019-06-21] MEDS: DAKINS QUARTER STRENGTH (0.125%) 480 ML BOTTLE TOP SCH (08:13)
[2019-06-21] MEDS: BENAZEPRIL HCL 10 MG TABLET PO SCH ×2 (08:21→17:19)
[2019-06-21] MEDS: SPIRONOLACTONE 25 MG TABLET PO SCH (08:21)
--- NOTE | 2019-06-21 08:22 | NUR ---
rn notes BP at 100/59, bp meds held at this time
[2019-06-21] MEDS: Magnesium 1GM/D5W 100ML PREMIX 100 ML IV SCH ×2 (10:08→10:57)
[2019-06-21 13:34] LABS: URINE SODIUM, RANDOM 170 mmol/l (40-220)
[2019-06-21 13:38] LABS: OSMOLALITY,URINE 668 mOS/kg (340-1090)
--- NOTE | 2019-06-21 18:39 | NUR ---
RN CLOSING NOTES Patient remains on room air, a/o x3 and denies pain at this time. LFA 22 NS at 80 ml per hour. Wound cx to be done tomorrow when MD opens dressing. DC hold when patient about to be discharged. Bed at the lowest setting, call light within reach, side rails up x2. Will give report to NOC RN for ADRIAN bedside.
[2019-06-21] MEDS: HYDROCODONE/APAP 5/325MG 1 EACH TABLET PO PRN (19:28)
--- NOTE | 2019-06-21 19:30 | NUR ---
MS RN OPENING NOTES Received patient A/O x3, awake on bed. On RA, no SOB/respiratory distress noted. With wound vacc on set on 125mmHg continuous low suction with serosanguineous output noted. Patient complaint lower back pain 02/25. Administered due meds as ordered. Will continue to monitor accordingly.
[2019-06-21 20:00] VITALS: BP_SYST 114; BP_SYST 133; BP_DIAS 63
[2019-06-21] MEDS: ZOLPIDEM TARTRATE 5 MG TABLET PO PRN (21:01)
[2019-06-21] MEDS: MIRTAZAPINE 15 MG TABLET PO SCH (21:54)
--- NOTE | 2019-06-22 02:30 | NUR ---
MS RN NOTES Patient refused to change dressing of the the R leg and back. Education provided and informed patient the doctor will only change the L lower leg later today but patient insisted to refused. Patient is for wound dressing and photo taking of the lower back and bilateral lower legs.
[2019-06-22] MEDS: VANCOMYCIN 0.75 GM in IV D5W 250 ML IV SCH ×3 (04:11→21:13)
[2019-06-22] MEDS: MORPHINE SULFATE INJ 2 MG/ML DISP.SYRIN IV PRN ×2 (05:10→20:26)
[2019-06-22] MEDS: IV NS 0.9% 1,000 ML IV PRN ×2 (06:08→17:47)
[2019-06-22] MEDS: INSULIN REGULAR, HUMAN 100 UNIT/ML 3 ML VIAL SQ PRN ×2 (06:24→21:19)
[2019-06-22 06:33] LABS: BASOPHILS # (AUTO) 0.1 /CMM (0.0-0.2); BASOPHILS % (AUTO) 0.8 % (0.0-2.0); EOSINOPHILS % (AUTO) 1.8 % (0.0-6.0); HEMATOCRIT 43 % (39-51); HEMOGLOBIN 14.3 g/dL (13.5-17.5); LYMPHOCYTES # (AUTO) 2.5 /CMM (0.8-4.8); LYMPHOCYTES % (AUTO) 25.8 % (20.0-44.0); MEAN CORPUSCULAR HGB CONC 33 g/dl (31.0-36.0); MEAN CORPUSCULAR VOLUME 96 fL (80-96); MONOCYTES # (AUTO) 0.9 /CMM (0.1-1.30); MONOCYTES % (AUTO) 9.2 % (2.0-12.0); NEUTROPHILS # (AUTO) 6.1 /CMM (1.8-8.9); NEUTROPHILS % (AUTO) 62.4 % (43.0-81.0); PLATELET COUNT (AUTO) 426 /CMM (150-450); RED BLOOD CELL COUNT(AUTO) 4.42 MIL/uL (4.5-6.0); WHITE BLOOD COUNT (AUTO) 9.8 K/uL (4.3-11.0)
--- NOTE | 2019-06-22 06:40 | NUR ---
MS RN CLOSING NOTES Patient asleep, easily awaken. On RA, no SOB/respiratory distress noted. On wound vac, setting noted, with approximately 30ml serosanguineous output noted. Medicated for pain, noted effective. All nursing needs attended, no new complaints made. Kept on bed clean, dry and comfortable. Call light within easy reach. On fall precautions, sitter at bedside. Endorsed to the next shift.
[2019-06-22 06:51] LABS: CALCIUM, SERUM 7.7 mg/dL (8.5-10.1); CREATININE 0.6 mg/dL (0.6-1.3); MAGNESIUM 1.6 mg/dL (1.8-2.4); PHOSPHORUS 2.8 mg/dL (2.5-4.9); POTASSIUM 4.3 mmol/L (3.5-5.1)
[2019-06-22 06:53] LABS: THYROID STIMULATING HORMONE 5.347 uIU/mL (0.358-3.74)
--- NOTE | 2019-06-22 07:30 | NUR ---
MS RN OPENING NOTES RECEIVED PATIENT ON BED RESTING COMFORTABLY IN MODERATE HIGH BACK REST. A/O X3. NO SIGNS OF DISTRESS NOTED AT THIS TIME. NOTED WITH WOUND VAC ON LEFT LOWER LEG. IV FLUIDS ON LFA #22 WITH NS @ 100ML/HR. PATENT AND INTACT. SAFETY MEASURES IN PLACE. BED IN LOW LOCKED POSITION WITH SIDE RAILS UPX2. CALL LIGHT WITHIN REACH. WILL CONTINUE TO MONITOR.
[2019-06-22] MEDS: BLOOD SUGAR DIAGNOSTIC 1 EACH STRIP IN SCH ×4 (07:36→21:18)
[2019-06-22] MEDS: CEFEPIME 1 GM in IV D5W 50 ML IV SCH ×2 (07:43→19:59)
[2019-06-22 08:00] VITALS: BP 90/46
[2019-06-22] MEDS: NICOTINE PATCH (7MG) 7 MG PATCH.TD24 TD SCH (08:38)
[2019-06-22] MEDS: ATORVASTATIN 10 MG TABLET PO SCH (08:39)
[2019-06-22] MEDS: LACTOBACILLUS RHAMNOSUS GG 1 EACH CAP.SPRINK PO SCH ×2 (08:39→16:49)
[2019-06-22] MEDS: ASPIRIN EC 81 MG TABLET.DR PO SCH (08:39)
[2019-06-22] MEDS: DOCUSATE SODIUM 250 MG CAPSULE PO SCH (08:39)
[2019-06-22] MEDS: glipiZIDE 10 MG TABLET PO SCH (08:39)
[2019-06-22] MEDS: SPIRONOLACTONE 25 MG TABLET PO SCH (08:39)
[2019-06-22] MEDS: HYDROGEL DRESSING 90 GM TUBE TP SCH (08:41)
[2019-06-22] MEDS: DAKINS QUARTER STRENGTH (0.125%) 480 ML BOTTLE TOP SCH (08:41)
[2019-06-22] MEDS: BENAZEPRIL HCL 10 MG TABLET PO SCH ×2 (09:00→16:50)
[2019-06-22] MEDS: HYDROCODONE/APAP 5/325MG 1 EACH TABLET PO PRN ×3 (09:07→18:57)
--- NOTE | 2019-06-22 09:54 | NUR ---
WOUND CARE CONSULT: PT SEEN FOR [employer] WOUND VAC DRESSING CHANGE TO LEFT LOWER LEG. SKIN PREP AND VAC DRAPE USED FOR PERIWOUND, WOUND NOTED TO HAVE RED GRANULATION TISSUE (100%) WITH SMALL AREA OF UNDERMINING AT 11:00 3CM. 3 PIECES OF GRANUFOAM USED. PT WAS AGREEABLE AND COOPERATIVE AT FIRST, THEN BECAME AGITATED AND WAS YELLING AND CURSING AT STAFF. PT WAS GIVEN TIME TO REST AND HE BECAME MORE CALM. PT HAD BEEN MEDICATED FOR PAIN BY NURSING STAFF. VAC AT 125mmHg CONTINUOUS SETTING. CANISTER WAS CHANGED WITH 400cc RED DRAINAGE. NO ODOR WAS NOTED. CULTURE WAS TAKEN AND PHOTO OF WOUND WAS TAKEN BY RN. SINGER AND BURN NET USED TO PROTECT VAC DRESSING. PT WAS CALM AT END OF PROCEDURE. WILL FOLLOW. Addendum: 06/22/19 at 0959 by TU JULIAN WNDNU Amended: Links added.
[2019-06-22] MEDS: Magnesium 1GM/D5W 100ML PREMIX 100 ML IV SCH ×2 (10:10→10:59)
[2019-06-22 16:00] VITALS: BP 109/55
--- NOTE | 2019-06-22 18:32 | NUR ---
MS RN CLOSING NOTES PATIENT ON BED RESTING COMFORTABLY IN MODERATE HIGH BACK REST. A/O X3. NO SIGNS OF DISTRESS NOTED THROUGHOUT THE SHIFT. NOTED WITH WOUND VAC ON LEFT LOWER LEG. IV FLUIDS ON LFA #22 WITH NS @ 100ML/HR. PATENT AND INTACT. SAFETY MEASURES IN PLACE. BED IN LOW LOCKED POSITION WITH SIDE RAILS UPX2. CALL LIGHT WITHIN REACH. WILL ENDORSE TO FRENCH FOLDER NURSE FOR ADRIAN.
--- NOTE | 2019-06-22 19:49 | NUR ---
RN MS OPENING NOTES RECEIVED PATIENT IN BED ASLEEP. EASILY AROUSABLE. ALERT AND ORIENTED X3, VERBALLY RESPONSIVE, ABLE TO MAKE NEEDS KNOWN. BREATHING EVEN AND UNLABORED. NO SOB NOTED. ON ROOM AIR. CURRENTLY DENIES PAIN OR DISCOMFORT. IV ON LEFT FOREARM INTACT AND PATENT WITH IVF INFUSING. WOUND VAC TO LEFT LEG INTACT AT 125MMGH LOW CONT. SKIN DRY AND WARM TO TOUCH. AFEBRILE. SITTER AT BEDSIDE. ON [employer] MATTRESS. ALL OTHER NEEDS ATTENDED TO. SAFETY MEASURES IN PLACE. CALL LIGHT WITHIN REACH. WILL CONTINUE TO MONITOR.
[2019-06-22 20:00] VITALS: BP 119/66
[2019-06-22] MEDS: MIRTAZAPINE 15 MG TABLET PO SCH (21:12)
[2019-06-22] MEDS: ZOLPIDEM TARTRATE 5 MG TABLET PO PRN (21:13)
[2019-06-23] MEDS: IV NS 0.9% 1,000 ML IV PRN ×2 (05:08→21:20)
[2019-06-23] MEDS: VANCOMYCIN 0.75 GM in IV D5W 250 ML IV SCH ×3 (05:08→21:21)
--- NOTE | 2019-06-23 06:25 | NUR ---
RN MS NOTES PATIENT REFUSED TO HAVE SACRAL/BUTTOCKS DRESSINGS ASSESSED, ALTHOUGH 2 MEPILEX DRESSINGS ON THE LEFT BUTTOCKS LOOKS C/D/I. PER PATIENT, HE WOULD JUST LIKE TO SLEEP MORE. PER PATIENT, "AFTER BREAKFAST." ERNESTO HAYNES AND SOFIA IN ROOM AND WITNESSED. WILL ENDORSE TO ONCOMING NURSE.
[2019-06-23] MEDS: INSULIN REGULAR, HUMAN 100 UNIT/ML 3 ML VIAL SQ PRN (06:35)
[2019-06-23] MEDS: BLOOD SUGAR DIAGNOSTIC 1 EACH STRIP IN SCH ×4 (06:35→22:01)
[2019-06-23 06:36] LABS: BASOPHILS # (AUTO) 0.1 /CMM (0.0-0.2); BASOPHILS % (AUTO) 0.6 % (0.0-2.0); EOSINOPHILS % (AUTO) 2.3 % (0.0-6.0); HEMATOCRIT 41 % (39-51); HEMOGLOBIN 13.9 g/dL (13.5-17.5); LYMPHOCYTES # (AUTO) 2.4 /CMM (0.8-4.8); LYMPHOCYTES % (AUTO) 24.3 % (20.0-44.0); MEAN CORPUSCULAR HGB CONC 34 g/dl (31.0-36.0); MEAN CORPUSCULAR VOLUME 96 fL (80-96); MONOCYTES # (AUTO) 0.9 /CMM (0.1-1.30); MONOCYTES % (AUTO) 9.1 % (2.0-12.0); NEUTROPHILS # (AUTO) 6.4 /CMM (1.8-8.9); NEUTROPHILS % (AUTO) 63.7 % (43.0-81.0); PLATELET COUNT (AUTO) 424 /CMM (150-450); RED BLOOD CELL COUNT(AUTO) 4.29 MIL/uL (4.5-6.0); WHITE BLOOD COUNT (AUTO) 10.1 K/uL (4.3-11.0)
[2019-06-23 06:54] LABS: CALCIUM, SERUM 7.7 mg/dL (8.5-10.1); CREATININE 0.6 mg/dL (0.6-1.3); MAGNESIUM 1.6 mg/dL (1.8-2.4); PHOSPHORUS 2.9 mg/dL (2.5-4.9); POTASSIUM 4.1 mmol/L (3.5-5.1)
--- NOTE | 2019-06-23 06:54 | NUR ---
RN MS CLOSING NOTES PATIENT IN BED ASLEEP. IN NO DISTRESS. NO ACUTE CHANGES THROUGHOUT SHIFT. BREATHING EVEN AND UNLABORED. NO SOB NOTED. ON ROOM AIR. CURRENTLY DENIES PAIN OR DISCOMFORT. IV ON RIGHT FOREARM INTACT AND PATENT WITH IVF INFUSING. WOUND VAC TO LEFT LEG INTACT AT 125MMGH LOW CONT. - NO OUTPUT NOTED THROUGHOUT SHIFT. DRESSINGS ON BLE C/D/I. WILL INFORM DAY NURSE REGARDING SACRAL/BUTTOCKS DRESSINGS. SITTER AT BEDSIDE. ON [employer] MATTRESS. ALL OTHER NEEDS ATTENDED TO. SAFETY MEASURES IN PLACE. CALL LIGHT WITHIN REACH. WILL ENDORSE TO ONCOMING NURSE FOR ADRIAN.
--- NOTE | 2019-06-23 07:30 | NUR ---
RN MS NOTES PT IN BED, ASLEEP, EASY TO AROUSE, ALERT AND ORIENTED, NO COMPLAINT AT THIS TIME, IV FLUIDS INFUSING WELL, SITTER AT BEDSIDE, TURNED AND REPOSITIONED, KEPT WARM AND COMFORTABLE.
[2019-06-23 08:00] VITALS: BP 103/58
--- NOTE | 2019-06-23 08:33 | NUR ---
WOUND CARE: KCI VAC FUNCTIONING WELL AT 125mmHg CONTINUOUS SETTING TO LEFT LOWER LEG. SMALL AMOUNT OF PINK DRAINAGE IN CANISTER. WILL FOLLOW.
[2019-06-23] MEDS: BENAZEPRIL HCL 10 MG TABLET PO SCH ×2 (09:00→16:33)
[2019-06-23] MEDS: CEFEPIME 1 GM in IV D5W 50 ML IV SCH ×2 (09:04→20:01)
[2019-06-23] MEDS: LACTOBACILLUS RHAMNOSUS GG 1 EACH CAP.SPRINK PO SCH ×2 (09:04→16:33)
[2019-06-23] MEDS: NICOTINE PATCH (7MG) 7 MG PATCH.TD24 TD SCH (09:04)
[2019-06-23] MEDS: ASPIRIN EC 81 MG TABLET.DR PO SCH (09:04)
[2019-06-23] MEDS: DOCUSATE SODIUM 250 MG CAPSULE PO SCH (09:04)
[2019-06-23] MEDS: glipiZIDE 10 MG TABLET PO SCH (09:05)
[2019-06-23] MEDS: SPIRONOLACTONE 25 MG TABLET PO SCH (09:05)
[2019-06-23] MEDS: ATORVASTATIN 10 MG TABLET PO SCH (09:07)
[2019-06-23] MEDS: HYDROGEL DRESSING 90 GM TUBE TP SCH (09:08)
[2019-06-23] MEDS: DAKINS QUARTER STRENGTH (0.125%) 480 ML BOTTLE TOP SCH (09:08)
[2019-06-23] MEDS: MAGNESIUM OXIDE 400 MG TABLET PO SCH ×2 (11:11→21:41)
--- NOTE | 2019-06-23 13:00 | NUR ---
RN MS NOTES PT IN BED, RESTING, ASSISTED WITH MEALS, TOLERATES CURRENT DIET, KEPT CLEAN AND DRY, WOUND DRESSINGS DONE ORDERED, KEPT WARM AND COMFORTABLE IN BED.
[2019-06-23] MEDS: MORPHINE SULFATE INJ 2 MG/ML DISP.SYRIN IV PRN ×2 (14:04→21:41)
[2019-06-23 15:27] VITALS: BP 119/58
--- NOTE | 2019-06-23 18:07 | NUR ---
RN MS NOTES PT IN BED, ASLEEP, EASY TO AROUSE, ALERT AND ORIENTED, NO COMPLAINT OF PAIN AT THIS TIME, NOT IN DISTRESS, IV FLUIDS INFUSING WELL, CALL LIGHT WITHIN REACH, SITTER AT BEDSIDE, PM CARE PROVIDED, ASSISTED IN TURNING AND REPOSITIONING, KEPT WARM AND COMFORTABLE.
--- NOTE | 2019-06-23 18:38 | NUR ---
RN MS NOTES OFFERED TO DO TREATMENT AND DRESSING CHANGE TO RIGHT LEG WOUND, PT REFUSED, EXPLAINED RISKS AND BENEFITS, STILL REFUSED.
--- NOTE | 2019-06-23 19:00 | NUR ---
MS RN OPENING NOTES Received patient A/O x3, awake, on prone position, patient denies discomfort at this time. On RA, no SOB/respiratory distress noted. With wound back, settings noted, with minimal serosanguineous output noted. On KAMRAN mattress. Kept on bed clean, dry and comfortable. Sitter at bedside. Call light within easy reach. Will continue to monitor accordingly.
[2019-06-23 20:00] VITALS: BP 105/60
[2019-06-23] MEDS: HYDROCODONE/APAP 5/325MG 1 EACH TABLET PO PRN (20:01)
[2019-06-23] MEDS: MIRTAZAPINE 15 MG TABLET PO SCH (21:40)
[2019-06-24] MEDS: MORPHINE SULFATE INJ 2 MG/ML DISP.SYRIN IV PRN (03:02)
[2019-06-24] MEDS: VANCOMYCIN 0.75 GM in IV D5W 250 ML IV SCH (04:00)
--- NOTE | 2019-06-24 06:36 | NUR ---
MS RN CLOSING NOTES Patient asleep, easily awaken. On RA, no respiratory distress noted. With wound vac on Left lower leg, settings noted, on low continuous suction with approximately 25ml serosanguineous output noted. Medicated for pain, noted effective with Morphine as ordered. All due meds given as ordered, no ASE noted. All nursing needs attended. Kept on bed clean, dry and comfortable. Call light within easy reach. Endorsed to the next shift.
[2019-06-24] MEDS: BLOOD SUGAR DIAGNOSTIC 1 EACH STRIP IN SCH ×2 (06:43→12:27)
[2019-06-24 06:54] LABS: BASOPHILS # (AUTO) 0.1 /CMM (0.0-0.2); BASOPHILS % (AUTO) 0.6 % (0.0-2.0); EOSINOPHILS % (AUTO) 1.5 % (0.0-6.0); HEMATOCRIT 40 % (39-51); HEMOGLOBIN 13.5 g/dL (13.5-17.5); LYMPHOCYTES # (AUTO) 2.7 /CMM (0.8-4.8); LYMPHOCYTES % (AUTO) 28.2 % (20.0-44.0); MEAN CORPUSCULAR HGB CONC 33 g/dl (31.0-36.0); MEAN CORPUSCULAR VOLUME 96 fL (80-96); MONOCYTES # (AUTO) 0.9 /CMM (0.1-1.30); MONOCYTES % (AUTO) 9.7 % (2.0-12.0); NEUTROPHILS # (AUTO) 5.8 /CMM (1.8-8.9); PLATELET COUNT (AUTO) 427 /CMM (150-450); RED BLOOD CELL COUNT(AUTO) 4.24 MIL/uL (4.5-6.0); WHITE BLOOD COUNT (AUTO) 9.7 K/uL (4.3-11.0)
[2019-06-24 07:15] LABS: CREATININE 0.6 mg/dL (0.6-1.3); POTASSIUM 4.1 mmol/L (3.5-5.1)
[2019-06-24] MEDS: ASPIRIN EC 81 MG TABLET.DR PO SCH (08:45)
[2019-06-24] MEDS: HYDROCODONE/APAP 5/325MG 1 EACH TABLET PO PRN (08:48)
[2019-06-24] MEDS: glipiZIDE 10 MG TABLET PO SCH (08:48)
[2019-06-24] MEDS: ATORVASTATIN 10 MG TABLET PO SCH (08:49)
[2019-06-24] MEDS: SPIRONOLACTONE 25 MG TABLET PO SCH (08:49)
[2019-06-24] MEDS: CEFEPIME 1 GM in IV D5W 50 ML IV SCH (08:56)
[2019-06-24] MEDS: LACTOBACILLUS RHAMNOSUS GG 1 EACH CAP.SPRINK PO SCH (09:00)
[2019-06-24] MEDS: NICOTINE PATCH (7MG) 7 MG PATCH.TD24 TD SCH (09:00)
[2019-06-24] MEDS: DOCUSATE SODIUM 250 MG CAPSULE PO SCH (09:00)
[2019-06-24] MEDS: BENAZEPRIL HCL 10 MG TABLET PO SCH (09:00)
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
[2019-06-24] MEDS: HYDROGEL DRESSING 90 GM TUBE TP SCH (09:57)
[2019-06-24] MEDS: DAKINS QUARTER STRENGTH (0.125%) 480 ML BOTTLE TOP SCH (09:57)
[2019-06-24] MEDS ORDERED: Blood Sugar Diagnostic IN (11:09)
[2019-06-24] MEDS ORDERED: NICO-760 TD (11:09)
[2019-06-24] MEDS ORDERED: CLOTRIMAZOLE 1% 15 GM TUBE TP SCH (17:00)
--- NOTE | 2019-06-24 18:26 | NUR ---
discharge note pt discharged to [facility]. report called and given to foam charger. Med recon faxed to snf, acknowledged by foam charger. iv access lef t in place for cont iv abx. id band removed. pt refused d/c photos and skin check pt exclaimed "get me the f..... out of here". wound vac clamped, to be continued at [facility]. pt left hospital in ambulance with registration manager transport.
== END 2019-06-24 15:15 | DRG 616 ==
LOC: ER 11:38 → MED 14:06
PROVIDERS: ADMIT Nurse Practitioner Acute Care
PROC: 0JBQ0ZZ Excision of Right Foot Subcutaneous Tissue and Fascia, Open Approach (ICD-10-PCS; 2019-06-15)
PROC: 0JBR0ZZ Excision of Left Foot Subcutaneous Tissue and Fascia, Open Approach (ICD-10-PCS; principal; 2019-06-17)
PROC: 0Y6R0Z0 Detachment at Right 2nd Toe, Complete, Open Approach (ICD-10-PCS; 2019-06-17)
PROC: 0KBT0ZZ Excision of Left Lower Leg Muscle, Open Approach (ICD-10-PCS; 2019-06-17)
PROC: 0JB70ZZ Excision of Back Subcutaneous Tissue and Fascia, Open Approach (ICD-10-PCS; 2019-06-18)
DX: E11.69 Type 2 diabetes mellitus with other specified complication (principal); E43 Unspecified severe protein-calorie malnutrition; L03.115 Cellulitis of right lower limb; E11.52 Type 2 diabetes mellitus with diabetic peripheral angiopathy with gangrene; M86.8X7 Other osteomyelitis, ankle and foot; E87.1 Hypo-osmolality and hyponatremia; D68.59 Other primary thrombophilia; L03.116 Cellulitis of left lower limb; I96 Gangrene, not elsewhere classified; L02.212 Cutaneous abscess of back [any part, except buttock and flank]; L97.228 Non-pressure chronic ulcer of left calf with other specified severity; L97.429 Non-pressure chronic ulcer of left heel and midfoot with unspecified severity; L97.419 Non-pressure chronic ulcer of right heel and midfoot with unspecified severity; N17.0 Acute kidney failure with tubular necrosis; E66.9 Obesity, unspecified; E83.51 Hypocalcemia; F32.9 Major depressive disorder, single episode, unspecified; I10 Essential (primary) hypertension; Z79.84 Long term (current) use of oral hypoglycemic drugs; E88.09 Other disorders of plasma-protein metabolism, not elsewhere classified; Z83.6 Family history of other diseases of the respiratory system; E11.42 Type 2 diabetes mellitus with diabetic polyneuropathy; Z68.28 Body mass index [BMI] 28.0-28.9, adult; S31.000A Unspecified open wound of lower back and pelvis without penetration into retroperitoneum, initial encounter; X58.XXXA Exposure to other specified factors, initial encounter; Y93.9 Activity, unspecified; Y92.129 Unspecified place in nursing home as the place of occurrence of the external cause; T21.04XA Burn of unspecified degree of lower back, initial encounter; D72.829 Elevated white blood cell count, unspecified; E11.621 Type 2 diabetes mellitus with foot ulcer; L97.514 Non-pressure chronic ulcer of other part of right foot with necrosis of bone; E11.622 Type 2 diabetes mellitus with other skin ulcer; L97.529 Non-pressure chronic ulcer of other part of left foot with unspecified severity; Z91.19 Patient's noncompliance with other medical treatment and regimen; F17.210 Nicotine dependence, cigarettes, uncomplicated; I48.91 Unspecified atrial fibrillation; Z79.82 Long term (current) use of aspirin
CPT/HCPCS: 36415; 71045-TC; 73630-TC; 80048-TC; 80053-TC; 80076-TC; 80202-TC; 82533; 82962-TC; 83605-TC; 83735-TC; 83935-TC; 84100-TC; 84300-TC; 84439-TC; 84443-TC; 84481; 84550-TC; 85025-TC; 85730-TC; 87040-TC; 87070-TC; 87075-TC; 87081-TC; 87186-TC; 88305-TC; 88311-TC; 88312-TC; 93307-TC; 97530-TC; A6209; A6248; A6253; A6403; A9563; G0378; G0480; J0692; J1100; J1170; J1815; J2270; J2405; J2543; J2704; J3370; J3475; J3490; J7030; J7060

== ENCOUNTER 2019-07-06 13:45 | Outpatient (CLI) | payer MEDICARE, MEDICAID ==
[~2019-07-06 13:45] MED LIST changes: +Blood Sugar Diagnostic IN; +NICO-760 TD; +SIMV-49 PO; -SIMV40TA5 PO
== END 2019-07-06 23:59 ==
LOC: WOU 13:45
PROVIDERS: ATTEND Surgery
DX: T24.312A Burn of third degree of left thigh, initial encounter (principal); T24.211D Burn of second degree of right thigh, subsequent encounter; T31.0 Burns involving less than 10% of body surface; X08.8XXA Exposure to other specified smoke, fire and flames, initial encounter; Y92.89 Other specified places as the place of occurrence of the external cause; L98.8 Other specified disorders of the skin and subcutaneous tissue; I10 Essential (primary) hypertension; E11.9 Type 2 diabetes mellitus without complications; E78.5 Hyperlipidemia, unspecified; Z79.84 Long term (current) use of oral hypoglycemic drugs; Z79.82 Long term (current) use of aspirin
CPT/HCPCS: 11042; 11045

== ENCOUNTER 2024-07-09 23:57 | Emergency (ER) | payer MEDICARE, MEDICAID ==
[~2024-07-09] VITALS: Ht 177.8 cm; Wt 95.3 kg
[~2024-07-09 23:57] MED LIST changes: -BENA10TA11 PO; +BENA10TA74 PO
[2024-07-10 00:21] VITALS: BP 126/76; TEMP 97.6; O2SAT 97
== END 2024-07-10 05:15 | disposition home or self-care (01) ==
LOC: ER 07-10 00:03
DX: S09.8XXA Other specified injuries of head, initial encounter (principal); E11.9 Type 2 diabetes mellitus without complications; E78.00 Pure hypercholesterolemia, unspecified; F17.200 Nicotine dependence, unspecified, uncomplicated; I10 Essential (primary) hypertension; J44.9 Chronic obstructive pulmonary disease, unspecified; Z79.82 Long term (current) use of aspirin; Z79.84 Long term (current) use of oral hypoglycemic drugs; Z60.2 Problems related to living alone; Z86.79 Personal history of other diseases of the circulatory system; W18.30XA Fall on same level, unspecified, initial encounter; Y93.89 Activity, other specified; Y92.89 Other specified places as the place of occurrence of the external cause; Y99.8 Other external cause status
CPT/HCPCS: 70450-TC; 70486-TC; 72125-TC